=== PATIENT | male | born 1955 | race African-American/Black ===

== ENCOUNTER → 2017-07-17 | Outpatient (CLI) | payer BC ==
[2015-01-13 13:24] VITALS: BP 130/79
[~2017-07-17] MED LIST: AMLO10TA2 PO; ATOR10TA PO; HYDR-2758 PO; LIDO700A4 TP; LOSA1TAB22 PO; LOVA40TA2 PO; NAPR220C4 PO; OLME40TA12 PO; SAXA1TBM3 PO; SITA100T PO; SITA1TBM7 PO; TADA20TA PO; VARD20TA2 PO
--- NOTE | 2017-07-17 10:15 | RAD ---
Examination: CT abdomen and pelvis without contrast History: History of abdominal pain, history of left lower quadrant abdominal hematoma Comparison: 08/29/2011 Technique: Axial CT images of the abdomen pelvis were performed with contrast. Coronal and sagittal reformats were performed PQRS Compliance Statement: One or more of the following individualized dose reduction techniques were utilized for this examination: 1. Automated exposure control 2. Adjustment of the mA and/or kV according to patient size 3. Use of iterative reconstruction technique Findings: Minimal right lung base atelectasis. No evidence free air identified in the abdomen. Partially visualized coronary artery calcifications. The evaluation of the solid organs is limited due to lack of IV contrast. The evaluation of the bowel is limited due to lack of oral contrast. The visualized noncontrasted liver, spleen, adrenals grossly appears unremarkable. The stomach is mildly distended. The gallbladder is mildly distended. The visualized pancreas demonstrates tiny calcifications in the head of the pancreas likely chronic. The small bowel is nondilated. Feces and gas noted throughout the colon. Few sigmoid colon diverticulosis. The appendix is normal. Minimal fat stranding identified in the mesenteric root. No evidence of intrarenal collecting system calculi or hydronephrosis. The urinary bladder is mildly distended. Mildly enlarged prostate gland. Mild aortic atherosclerosis. Small sclerotic density identified in the right iliac bone grossly similar to prior exam. Moderate degenerative changes lumbar spine. Small soft tissue density identified in the subcutaneous region of the anterior abdominal wall measuring 2 cm probably secondary to subcutaneous injection. Impression: 1. No acute intra-abdominal findings. 2. Mild fat stranding identified in the mesenteric root grossly similar to prior exam probably chronic. 3. Sigmoid colon diverticulosis.
== END | disposition home or self-care (01) ==
LOC: CT 07:20
PROVIDERS: ATTEND Internal Medicine
DX: S30.1XXA Contusion of abdominal wall, initial encounter (principal); K57.30 Diverticulosis of large intestine without perforation or abscess without bleeding; J98.11 Atelectasis; I25.10 Atherosclerotic heart disease of native coronary artery without angina pectoris; N40.0 Benign prostatic hyperplasia without lower urinary tract symptoms; X58.XXXA Exposure to other specified factors, initial encounter; Y93.89 Activity, other specified; Y92.89 Other specified places as the place of occurrence of the external cause; Y99.8 Other external cause status
CPT/HCPCS: 74176

== ENCOUNTER 2018-10-10 05:03 | Emergency (ER) | payer BC ==
[~2018-10-10] VITALS: Ht 180.3 cm; Wt 139.3 kg
[~2018-10-10 05:03] MED LIST changes: -AMLO10TA2 PO; +AMLO10TA6 PO; -HYDR-2758 PO; +HYDR-2761 PO
[2018-10-10 05:39] LABS: BASO % 1 % (0-3); EOS # 0.3 x10^3/uL (0.0-0.7); EOS % 5 % (0-3); HEMATOCRIT 39.7 % (39.0-53.0); HEMOGLOBIN 13.4 g/dL (13.0-17.5); LYMPH # 1.9 x10^3/uL (1.0-4.8); LYMPH % 37 % (24-48); MEAN CORPUSCULAR HEMOGLOBIN 29 pg (25-35); MEAN CORPUSCULAR HGB CONC 34 g/dL (31-37); MEAN CORPUSCULAR VOLUME 86 fL (79-100); MONO # 0.5 x10^3/uL (0.0-1.1); MONO % 9 % (0-9); NEUT # 2.6 x10^3uL (1.8-7.7); NEUT % 49 % (31-73); PLATELET COUNT 179 x10^3/uL (140-400); RED BLOOD COUNT 4.63 x10^6/uL (4.30-5.70); RED CELL DISTRIBUTION WIDTH 13.9 % (11.5-14.5); WHITE BLOOD COUNT 5.2 x10^3/uL (4.0-11.0)
[2018-10-10 05:58] LABS: CALCIUM 9.2 mg/dL (8.5-10.1); CREATININE 1.3 mg/dL (0.7-1.3); POTASSIUM 4.4 mmol/L (3.5-5.1)
[2018-10-10 05:58] LABS: BILIRUBIN,URINE NEGATIVE (NEG); CLARITY,URINE CLEAR; COLOR,URINE YELLOW; NITRITE,URINE NEGATIVE (NEG); PROTEIN,URINE 30 mg/dL (NEG-TRACE); UROBILINOGEN,URINE 0.2 mg/dL (0.2 mg/dL)
[2018-10-10 06:05] LABS: ALBUMIN 3.5 g/dL (3.4-5.0); ALBUMIN/GLOBULIN RATIO 1.1 (1.0-1.7); TOTAL BILIRUBIN 0.8 mg/dL (0.2-1.0); TOTAL PROTEIN 6.8 g/dL (6.4-8.2)
--- NOTE | 2018-10-10 06:08 | RAD ---
INDICATION: dizziness COMPARISON: None. TECHNIQUE: Axial CT images obtained through the head without intravenous contrast. One or more of the following individualized dose reduction techniques were utilized for this examination: 1. Automated exposure control; 2. Adjustment of the mA and/or kV according to patient size; 3. Use of iterative reconstruction technique. FINDINGS: No intracranial hemorrhage. No midline shift. Basal cisterns patents. Ventricles and sulci are globally prominent. No acute osseous abnormality. Orbits and paranasal sinuses unremarkable. Scattered foci of low attenuation within the white matter. IMPRESSION: 1. No acute intracranial hemorrhage. 2. Scattered regions of low attenuation within the white matter. Non-specific in nature but frequently secondary to chronic small vessel ischemic disease. 3. Prominence of ventricles and sulci which is frequently secondary to age related volume loss. Electronically signed by: Lyle Felix MD (10/10/2018 6:04 AM) [facility]
[2018-10-10 06:09] LABS: BACTERIA,URINE FEW /HPF (0-FEW); SQUAMOUS EPITHELIAL CELL,UR OCC /LPF; WBC,URINE OCC /HPF (0-4)
--- NOTE | 2018-10-10 06:36 | PHYS DOC ---
Past Medical History Past Medical History: Arthritis, Diabetes-Type II, High Cholesterol, Hypertension, Other Additional Past Medical Histor: CHRONIC BACK PAIN Past Surgical History: Other Additional Past Surgical Histo: throat surgery and shoulder surgery Alcohol Use: Rarely Drug Use: None Adult General Chief Complaint Chief Complaint: DIZZY/LIGHT HEADED HPI HPI Patient is a 63 year old Afro-[place] male history of chronic back pain currently on Aleve and muscle relaxers who presents with dizziness described as lightheadedness generalized weakness and sweats starting several hours prior to ED arrival. Denies headache, chest pain, palpitations, shortness of air. No abdominal pain, flank pain, no urinary frequency urgency. No focal extremity weakness or loss of sensation. No other acute symptoms or complaints.[ ] Review of Systems Review of Systems View symptoms as per history of present illness. All other systems were reviewed and found to be within normal limits, except as documented in this note. Allergies Allergies Allergies Coded Allergies Type Severity Reaction Last Updated Verified No Known Drug Allergies 11/21/13 No Physical Exam Physical Exam Constitutional: Well developed, well nourished, mildly weak and fatigued appearing. [] HENT: Normocephalic, atraumatic, bilateral external ears normal, oropharynx moist, no oral exudates. [] Eyes: PERRLA, EOMI, conjunctiva normal, no discharge. [] Neck: Normal range of motion, no tenderneS. [] Cardiovascular:Heart rate regular rhythm, no murmur [] Lungs & Thorax: Bilateral breath sounds clear to auscultation. [] Abdomen: Bowel sounds normal, soft, no tenderness. [] Skin: Warm, dry, no erythema, no rash. [] Back: No tenderness, no CVA tenderness. [] Extremities: No tenderness, no cyanosis, no clubbing, ROM intact, no edema. [] Neurologic: Alert and oriented X 3, normal motor function, normal sensory function, no focal deficits noted. [] Psychologic: Affect normal, judgement normal, mood normal. [] Current Patient Data Vital Signs Vital Signs Date Time Temp Pulse Resp B/P (MAP) Pulse Ox O2 Delivery O2 Flow Rate FiO2 10/10/18 05:04 97.5 80 20 158/88 (111) 97 Room Air 97.5 Lab Values Laboratory Tests Test 10/10/18 05:10 10/10/18 05:45 White Blood Count 5.2 x10^3/uL (4.0-11.0) Red Blood Count 4.63 x10^6/uL (4.30-5.70) Hemoglobin 13.4 g/dL (13.0-17.5) Hematocrit 39.7 % (39.0-53.0) Mean Corpuscular Volume 86 fL (79-100) Mean Corpuscular Hemoglobin 29 pg (25-35) Mean Corpuscular Hemoglobin Concent 34 g/dL (31-37) Red Cell Distribution Width 13.9 % (11.5-14.5) Platelet Count 179 x10^3/uL (140-400) Neutrophils (%) (Auto) 49 % (31-73) Lymphocytes (%) (Auto) 37 % (24-48) Monocytes (%) (Auto) 9 % (0-9) Eosinophils (%) (Auto) 5 % (0-3) H Basophils (%) (Auto) 1 % (0-3) Neutrophils # (Auto) 2.6 x10^3uL (1.8-7.7) Lymphocytes # (Auto) 1.9 x10^3/uL (1.0-4.8) Monocytes # (Auto) 0.5 x10^3/uL (0.0-1.1) Eosinophils # (Auto) 0.3 x10^3/uL (0.0-0.7) Basophils # (Auto) 0.0 x10^3/uL (0.0-0.2) Sodium Level 137 mmol/L (136-145) Potassium Level 4.4 mmol/L (3.5-5.1) Chloride Level 103 mmol/L (98-107) Carbon Dioxide Level 28 mmol/L (21-32) Anion Gap 6 (6-14) Blood Urea Nitrogen 20 mg/dL (8-26) Creatinine 1.3 mg/dL (0.7-1.3) Estimated GFR (Cockcroft-Gault) 67.0 BUN/Creatinine Ratio 15 (6-20) Glucose Level 156 mg/dL (70-99) H Calcium Level 9.2 mg/dL (8.5-10.1) Total Bilirubin 0.8 mg/dL (0.2-1.0) Aspartate Amino Transferase (AST) 15 U/L (15-37) Alanine Aminotransferase (ALT) 26 U/L (16-63) Alkaline Phosphatase 92 U/L (46-116) Creatine Kinase 148 U/L (39-308) Troponin I Quantitative < 0.017 ng/mL (0.000-0.055) Total Protein 6.8 g/dL (6.4-8.2) Albumin 3.5 g/dL (3.4-5.0) Albumin/Globulin Ratio 1.1 (1.0-1.7) Thyroid Stimulating Hormone (TSH) 1.882 uIU/mL (0.358-3.74) Urine Collection Type Unknown Urine Color Yellow Urine Clarity Clear Urine pH 7.0 Urine Specific [place] 1.020 Urine Protein 30 mg/dL (NEG-TRACE) Urine Glucose (UA) 100 mg/dL (NEG) Urine Ketones (Stick) Negative mg/dL (NEG) Urine Blood Negative (NEG) Urine Nitrite Negative (NEG) Urine Bilirubin Negative (NEG) Urine Urobilinogen Dipstick 0.2 mg/dL (0.2 mg/dL) Urine Leukocyte Esterase Negative (NEG) Urine RBC 1-2 /HPF (0-2) Urine WBC Occ /HPF (0-4) Urine Squamous Epithelial Cells Occ /LPF Urine Bacteria Few /HPF (0-FEW) Laboratory Tests 10/10/18 05:10 Laboratory Tests 10/10/18 05:10 EKG EKG [EKG: Reviewed] Radiology/Procedures Radiology/Procedures [CT head: No acute disease per radiology report] Course & Med Decision Making Course & Med Decision Making Pertinent Labs and Imaging studies reviewed. (See chart for details) [Nondescript dizziness with generalized weakness. CT, negative. No focal neurologic deficits on exam. In progress. Care endorsed to oncoming ERP at 6:30] Dragon Disclaimer Dragon Disclaimer This electronic medical record was generated, in whole or in part, using a voice recognition dictation system. Departure Departure Referrals: RAYMON HEALY MD (PCP) GLENN CERRATO DO Oct 10, 2018 06:36
--- NOTE | 2018-10-10 06:37 | EKG ---
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
[2018-10-10] MEDS ORDERED: IV NORMAL SALINE 1000ML BAG 1,000 ML IV ONE (07:00)
[2018-10-10 07:03] LABS: INFLUENZA A PATIENT NEGATIVE (NEGATIVE); INFLUENZA B PATIENT NEGATIVE (NEGATIVE)
--- NOTE | 2018-10-10 07:38 | RAD ---
Portable chest, 10/10/2018: HISTORY: Chest pain The patient positioning is lordotic. The depth of inspiration is suboptimal. The heart size is normal. There are prominent epicardial fat pads. No acute infiltrate is seen. There is no evidence of pleural fluid. IMPRESSION: No acute cardiopulmonary abnormality is detected. Electronically signed by: Rico Manley MD (10/10/2018 7:34 AM) [facility]
[2018-10-10 08:48] VITALS: BP 120/68
== END 2018-10-10 09:11 | disposition home or self-care (01) ==
LOC: ER 05:03 → UNDOADMOB 07:00 → 6 SOUTH 07:00
DX: R42 Dizziness and giddiness (principal); R53.1 Weakness; G89.29 Other chronic pain
CPT/HCPCS: 36415; 70450; 71045; 80053; 81001; 82550; 84443; 84484; 85025; 87804; 93005; 96360; 99284; J7030

== ENCOUNTER → 2020-04-27 | Outpatient (CLI) | payer BC ==
[~2020-04-27] MED LIST changes: -AMLO10TA6 PO; +AMLO10TA8 PO; +CARV3.1210 PO; +IOHEXOL 180 MG/ML 10 ML VIAL. ONE; +SITA1TAB11 PO; +Vitamin D3; +methylPREDNISolone ACETATE 40 MG/ML VIAL. ONE; +methylPREDNISolone ACETATE 80 MG/ML VIAL. ONE
--- NOTE | 2020-04-27 09:05 | PDOC2 ---
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 Patient reports the pain is constant sharp stabbing throbbing shooting radiating tingling worse during the day worse with walking standing changing positions better with sitting or laying down but riding in the bus and driving is causing the pain to be significantly increased as well. Patient reports it wakes him from sleep multiple times a night does not affect his bowel bladder control significantly but he has some increased frequency but no loss of continence patient what it does affect his body walk significantly does not use any assistive devices. Patient had physical therapy which was helpful at the time but is doing some stretching strength exercises with it now that is still not helping significantly patient is trying Aleve as well as lidocaine patches which do help mildly as well. Patient rates his pain as a 9 on a scale of 10 with occupational activities 10 with recreation 8 with family home was possibilities and social activity 10 with sexual behavior 8 with self-care and 9 with life support activities. Patient ports no overt loss of motor function but significant fatigability with walking especially sitting and riding in the bus for long period of time and with standing and changing position especially from seated to standing and standing to seated. PAST MEDICAL HISTORY: PMH: Hypertension arthritis diabetes type 2 PREVIOUS SURGERIES: Past Surgical Hx: Left shoulder surgery 1989 uvulectomy 1988 CURRENT MEDICATIONS: Current Meds: Active Scripts Medications Dose Route/Sig Max Daily Dose Days Date Category [Vitamin D3] 25 Mcg DAILY 04/27/20 Reported Janumet 50-1,000 Mg Tablet (Sitagliptin Phos/Metformin Hcl) 1 Each Tablet 1 Tab PO BID 04/27/20 Reported Carvedilol (Carvedilol) 3.125 Mg Tablet 3.125 Mg PO BID 04/27/20 Reported Losartan-Hctz 100-25 Mg Tab (Losartan/Hydrochlorothiazide) 1 Each Tablet 1 Tab PO DAILY 02/07/15 Reported Amlodipine Besylate 10 Mg Tablet 10 Mg PO HS 01/08/14 Reported Lipitor (Atorvastatin Calcium) 10 Mg Tablet 10 Mg PO HS 01/08/14 Reported ALLERGIES; Allergies: Coded Allergies: No Known Drug Allergies (Unverified , 11/21/13) FAMILY HISTORY: Family Hx: No major medical problems conditions that patient is aware of SOCIAL HISTORY: Social Hx: Patient does not smoke does not drink alcohol does not use any illegal illicit or recreational drugs is lives with his spouse has no children living at home 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 REVIEW OF SYSTEMS: ROS: Review of systems positive sander wooden pencils is present illness all systems reviewed otherwise negative complete formal document on patient's chart PHYSICAL EXAM: VS: Blood pressures 142/90 pulse 76 respirations 18 temperature 97.7 F height is 5 foot 11 weight is3 07 pounds PE: PHYSICAL EXAMINATION: GENERAL: The patient is awake, alert, oriented, appropriate, very pleasant demeanor HEENT: Shows normocephalic, atraumatic. Extraocular movements are intact and symmetrical. Oral cavity: Mucous membranes moist and pink. Dentition is intact. NECK: Shows anterior throat supple without palpable lymphadenopathy noted. Swallow reflex symmetrical. CHEST: Shows normal on inspection. Breath sounds are clear bilaterally. HEART: Shows S1, S2 clear. No murmurs auscultated. ABDOMEN: Soft, nontender, nondistended. No palpable organomegaly is noted. No rebound or guarding demonstrated. BACK: Shows spine grossly in the midline. Normal-appearing cervical lordotic curvature. There is slightly increased thoracic kyphosis, some minor flattening of the lumbar lordotic curvature. Lumbar paraspinous muscles show symmetrical on inspection, on palpation shows some moderate tenderness diffusely throughout the upper, middle and lower distribution of the paraspinous muscles bilaterally and also into the lower thoracic paraspinous musculature, firm and tender, but without specific trigger points, without radiation of pain. The patient has good rotational motion of the lumbar spine, both laterally as well as extension and flexion without significant difficulty. No tenderness over the spinous processes, sacrum or sacroiliac regions. EXTREMITIES: Lower extremities show deep tendon reflexes 1+ in the patellar and tendo calcaneus tendons. Motor exam is 4 on a scale of 5 with right dorsiflexion, extension, quadriceps and hamstring flexion and 4/5 on the left. Peripheral pulses are 1+ posterior tibial. No peripheral edema is noted bilaterally. Lower extremities are warm and dry to touch, equal in color and appearance. Straight leg raise noted to be negative on the right, left side is negative. Gaenslen's and Hollis's maneuvers are negative as well. The patient is able to stand stand on his toes walks with a slight favoring gait does appear to favor the right lower extremity slightly more than left but without any assistive devices such as canes or walker to ambulate.. SKIN: Shows warm and dry, good turgor. No edema. No sores, rashes or bruising throughout. IMPRESSION: Impression: Impression and plan: This is a 64-year-old male with approximate 2-year history increasing pain low back bilateral lower extremities and radicular fashion. Hypertension Arthritis Type 2 diabetes Plan: Options were discussed with the patient including conservative medical management physical therapies interventional techniques he like to pursue interventional techniques we discussed a lumbar epidural steroid traction using prescription as well as anatomical model to describe the procedure risk with an discussed including but not limited to bleeding infection possibility of epidural hematoma subsequent neurological compromise dural puncture headache spinal cord and/or nerve damage side effects of steroid medication and poor results regarding pain control. Patient understands wished to proceed. Patient return to clinic in approximately 2 weeks for follow-up was counseled return appointment activity level and side effects to be aware of. Procedure is lumbar epidural steroid injection under local anesthetic using sterile prep and drape at the L4-5 level using C-arm fluoroscopic guidance in both AP and lateral views medications injected is 120 mg Depo-Medrol + 10 mL preservative-free normal saline and 2 mL Isovue for contrast- condition at discharge is stable patient tolerated procedure well had no complications. SANJUANA WATT MD Apr 27, 2020 09:05
== END | disposition home or self-care (01) ==
LOC: PNCL 07:31
PROVIDERS: ATTEND Anesthesiology
DX: M54.5 Low back pain (principal); I10 Essential (primary) hypertension; M19.90 Unspecified osteoarthritis, unspecified site; E11.9 Type 2 diabetes mellitus without complications; Z79.899 Other long term (current) drug therapy
CPT/HCPCS: 62323; J1030; J1040; Q9965

== ENCOUNTER → 2020-05-11 | Outpatient (CLI) | payer BC ==
--- NOTE | 2020-05-11 08:48 | PDOC ---
Progress Note - Pain Clinic Date of Service: DOS: DATE: 05/11/20 TIME: 08:44 Diagnosis: Dx: Lumbar radiculopathy with lumbar degenerative disc disease lumbar spinal stenosis and lumbar spondylosis History or Present Illness: HPI: 64-year-old male returns follow-up status post lumbar epidural steroid injections x1. Patient reports about 75% improvement initially but developed only 15% improvement in mobility. Patient did have some significant pain in the low back and bilateral lower extremities posterior gluteus posterior thighs lateral thighs anterior thighs medial thighs medial lower legs and posterior calves. Patient reports a 9 on a scale of 10 is worse in the past week 7 on average 5 at its least is a 7 today. 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 Reports he has been able to walk further distances and move his legs better but he still has significant pain. Patient works better with sitting with laying down does not awaken him from sleep at night. Patient reports no new motor or sensory deficits no new bowel or bladder incontinence or other complaints. Physical Exam: VS: 174/80 pulse 75 respirations are 16 temperature is 98.2 F which is 302 pounds PE: PHYSICAL EXAMINATION: GENERAL: The patient is awake, alert, oriented, appropriate, very pleasant demeanor HEENT: Shows normocephalic, atraumatic. Extraocular movements are intact and symmetrical. Oral cavity: Mucous membranes moist and pink. Dentition is intact. NECK: Shows anterior throat supple without palpable lymphadenopathy noted. Swallow reflex symmetrical. CHEST: Shows normal on inspection. Breath sounds are clear bilaterally. HEART: Shows S1, S2 clear. No murmurs auscultated. ABDOMEN: Soft, nontender, nondistended, obese. No palpable organomegaly is noted. No rebound or guarding demonstrated. BACK: Shows spine grossly in the midline. Normal-appearing cervical lordotic curvature. There is slightly increased thoracic kyphosis, some minor flattening of the lumbar lordotic curvature. Lumbar paraspinous muscles show symmetrical on inspection, on palpation shows some moderate tenderness diffusely throughout the upper, middle and lower distribution of the paraspinous muscles bilaterally without specific trigger points, without radiation of pain. The patient has good rotational motion of the lumbar spine, both laterally as well as extension and flexion without significant difficulty. No tenderness over the spinous processes, sacrum or sacroiliac regions. EXTREMITIES: Lower extremities show deep tendon reflexes 1+ in the patellar and tendo calcaneus tendons. Motor exam is 4 on a scale of 5 with right dorsiflexion, extension, quadriceps and hamstring flexion and 4/5 on the left. Peripheral pulses are 1+ posterior tibial. No peripheral edema is noted bilaterally. Lower extremities are warm and dry to touch, equal in color and appearance. SKIN: Shows warm and dry, good turgor. No edema. No sores, rashes or bruising throughout. Procedure: Procedure: Discussed with the patient. Patient's old chart was reviewed his current medication regimen updated current review of systems updated today as well. Proceed with a second in the series lumbar epidurals or injections today with fluoroscopic guidance. Risks are again discussed including but not limited to bleeding infection possibility of epidural hematoma subsequent neurological compromise dural puncture headache spinal cord and or nerve damage side effects of steroid medication and poor results regarding pain control. Patient under stands wished to proceed. Patient will return to clinic in approximately 2 weeks for follow-up, was counseled as to return appointment activity level and side effects to be aware of. Medication Injected: Med Injected: Procedure is lumbar epidural steroid injection under local anesthetic using sterile prep and drape at the L4-5 level using C-arm fluoroscopic guidance in both AP and lateral views medications injected is 120 mg Depo-Medrol + 10 mL preservative-free normal saline and 2 mLfor contrast- condition at discharge is stable patient tolerated procedure well had no complications. Condition at Discharge: Condition at Discharge: Condition at discharge is stable patient tolerated the procedure well had no complications. SANJUANA WATT MD May 11, 2020 08:48
== END | disposition home or self-care (01) ==
LOC: PNCL 08:06
PROVIDERS: ATTEND Anesthesiology
DX: M51.16 Intervertebral disc disorders with radiculopathy, lumbar region (principal); M48.061 Spinal stenosis, lumbar region without neurogenic claudication; M47.896 Other spondylosis, lumbar region; I10 Essential (primary) hypertension; E11.9 Type 2 diabetes mellitus without complications; Z79.899 Other long term (current) drug therapy
CPT/HCPCS: 62323; J1030; J1040; Q9965

== ENCOUNTER → 2020-05-25 | Outpatient (CLI) | payer BC ==
--- NOTE | 2020-05-25 08:58 | PDOC ---
Progress Note - Pain Clinic Date of Service: DOS: DATE: 05/25/20 TIME: 08:55 Diagnosis: Dx: Lumbar radiculopathy with lumbar spinal stenosis lumbar degenerative disc disease and lumbar spondylosis History or Present Illness: HPI: 64-year-old male returns follow-up status post lumbar epidurals or injection x2. Patient reports about 45% improvement after the last injection but pain still in the low back and bilateral lower extremities posterior gluteus posterior lateral thigh lateral anterior thighs anterior medial thighs and lower legs with some cramping increasing since his last injection. 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 Patient rates his pain a 9 on scale 10 is worse with the past week 7 on average 5 its least is a 7 today. Patient ports pain is aching sharp dull tight shooting tingling burning cramping stabbing radiating can be constant with sitting standing walking and changing positions. Pain is better with sitting or laying down but again awakens him from sleep sporadically. Reports no new motor or sensory deficits no new bowel or bladder incontinence Physical Exam: VS: Blood pressure is 120/80 pulse 76 respirations 18 temperature 97.9 F weight is 302 pounds PE: PHYSICAL EXAMINATION: GENERAL: The patient is awake, alert, oriented, appropriate, very pleasant demeanor HEENT: Shows normocephalic, atraumatic. Extraocular movements are intact and symmetrical. Oral cavity: Mucous membranes moist and pink. NECK: Shows anterior throat supple without palpable lymphadenopathy noted. Swallow reflex symmetrical. CHEST: Shows normal on inspection. Breath sounds are clear bilaterally, no ra les rhonchi or wheezes auscultated. HEART: Shows S1, S2 clear. No murmurs auscultated. ABDOMEN: Soft, nontender, nondistended, obese. No palpable organomegaly is noted. No rebound or guarding demonstrated. BACK: Shows spine grossly in the midline. Normal-appearing cervical lordotic curvature. There is slightly increased thoracic kyphosis, some minor flattening of the lumbar lordotic curvature. Lumbar paraspinous muscles show symmetrical on inspection, on palpation shows some moderate tenderness diffusely throughout the upper, middle and lower distribution of the paraspinous muscles bilaterally without specific trigger points, without radiation of pain. The patient has good rotational motion of the lumbar spine, both laterally as well as extension and flexion without significant difficulty. No tenderness over the spinous processes, sacrum or sacroiliac regions. EXTREMITIES: Lower extremities show deep tendon reflexes 1+ in the patellar and tendo calcaneus tendons. Motor exam is 4 on a scale of 5 with right dorsiflexion, extension, quadriceps and hamstring flexion and 4/5 on the left. Peripheral pulses are 1 posterior tibial. No peripheral edema is noted bilaterally. Lower extremities are warm and dry to touch, equal in color and appearance. SKIN: Shows warm and dry, good turgor. No edema. No sores, rashes or bruising throughout. Procedure: Procedure: Options were discussed with the patient. Patient will chart reviews his current medication regimen updated current review of systems updated today as well. We will proceed with a third lumbar epidural steroid injection today with fluoroscopic guidance. Risks were again discussed including but not limited to bleeding infection possibility of epidural hematoma subsequent neurological compromise dural puncture headache spinal cord and or nerve damage side effects of steroid medication portals chronic pain control patient understands wished to proceed patient return to clinic in approximate 2 weeks for follow-up was coun seled as return appointment activity level and side effects be aware Medication Injected: Med Injected: Procedure is lumbar epidural steroid injection under local anesthetic using sterile prep and drape at the L4-5 level using C-arm fluoroscopic guidance in both AP and lateral views medications injected is 120 mg Depo-Medrol + 10 mL preservative-free normal saline and 2 mL contrast- condition at discharge is stable patient tolerated procedure well had no complications. Condition at Discharge: Condition at Discharge: Condition at discharge is stable, patient tolerated procedure well had no complications. SANJUANA WATT MD May 25, 2020 08:58
== END | disposition home or self-care (01) ==
LOC: PNCL 08:11
PROVIDERS: ATTEND Anesthesiology
DX: M51.16 Intervertebral disc disorders with radiculopathy, lumbar region (principal); M48.061 Spinal stenosis, lumbar region without neurogenic claudication; M47.896 Other spondylosis, lumbar region; I10 Essential (primary) hypertension; E11.9 Type 2 diabetes mellitus without complications; Z79.899 Other long term (current) drug therapy
CPT/HCPCS: 62323; J1030; J1040; Q9965

== ENCOUNTER 2020-05-28 15:13 | Emergency (ER) | payer BC ==
[~2020-05-28] VITALS: Ht 177.8 cm; Wt 137.2 kg
[~2020-05-28 15:13] MED LIST changes: -IOHEXOL 180 MG/ML 10 ML VIAL. ONE; -methylPREDNISolone ACETATE 40 MG/ML VIAL. ONE; -methylPREDNISolone ACETATE 80 MG/ML VIAL. ONE
[2020-05-28] MEDS ORDERED: IV NORMAL SALINE 1000ML BAG 1,000 ML IV ONE (15:45)
[2020-05-28 15:53] LABS: BASO % 0 % (0-3); EOS % 1 % (0-3); LYMPH # 1.5 x10^3/uL (1.0-4.8); LYMPH % 19 % (24-48); MEAN CORPUSCULAR HEMOGLOBIN 30 pg (25-35); MEAN CORPUSCULAR HGB CONC 34 g/dL (31-37); MEAN CORPUSCULAR VOLUME 87 fL (79-100); MONO # 0.6 x10^3/uL (0.0-1.1); MONO % 8 % (0-9); NEUT # 5.6 x10^3/uL (1.8-7.7); NEUT % 71 % (31-73); PLATELET COUNT 193 x10^3/uL (140-400); RED BLOOD COUNT 4.72 x10^6/uL (4.30-5.70); WHITE BLOOD COUNT 7.8 x10^3/uL (4.0-11.0)
[2020-05-28 16:03] LABS: GFR 40.7; POTASSIUM 4.2 mmol/L (3.5-5.1)
[2020-05-28 16:09] LABS: ALBUMIN 3.6 g/dL (3.4-5.0); MAGNESIUM 1.9 mg/dL (1.8-2.4); TOTAL PROTEIN 7.3 g/dL (6.4-8.2)
--- NOTE | 2020-05-28 16:18 | RAD ---
PORTABLE CHEST 1V Clinical History: Reason: altered mental status, weakness / Spl. Instructions: / History: Technique: AP view of the chest was obtained at 05/28/2020 3:40 PM. Comparison: None. Findings: The cardiomediastinal silhouette is normal. The pulmonary vasculature is normal. Linear opacities lung bases are likely discoid atelectasis. Impression: No evidence of an acute cardiopulmonary process. Electronically signed by: Alessandro Miller III, MD (05/28/2020 4:15 PM) [facility]
--- NOTE | 2020-05-28 16:19 | RAD ---
CT Head W/O Contrast: History: Reason: altered mental status, weakness / Spl. Instructions: / History: Comparison: none Axial images were obtained without contrast. The martinez and white matter appears normal and symmetrical for the patients age. There is no mass effect, extraaxial fluid collections or hydrocephalus. There is no gross bleed. There is no focal loss of martinez-white matter distinction to suggest acute ischemia, i.e. stroke. Impression: No acute findings. [facility] Compliance Statement: One or more of the following individualized dose reduction techniques were utilized for this examination: 1. Automated exposure control 2. Adjustment of the mA and/or kV according to patient size 3. Use of iterative reconstruction technique Electronically signed by: Alessandro Miller III, MD (05/28/2020 4:17 PM) [facility]
[2020-05-28 16:33] LABS: BILIRUBIN,URINE SMALL (NEG); CLARITY,URINE CLEAR; COLOR,URINE AMBER; NITRITE,URINE NEGATIVE (NEG); PROTEIN,URINE 100 mg/dL (NEG-TRACE)
[2020-05-28 16:43] LABS: BACTERIA,URINE 0 /HPF (0-FEW); RBC,URINE 0 /HPF (0-2); WBC,URINE RARE /HPF (0-4)
[2020-05-28 16:44] LABS: HYALINE CASTS, URINE MANY /HPF
--- NOTE | 2020-05-28 17:56 | PHYS DOC ---
Past Medical History Past Medical History: Arthritis, Diabetes-Type II, High Cholesterol, Hypertension, Other Additional Past Medical Histor: CHRONIC BACK PAIN Past Surgical History: Other Additional Past Surgical Histo: throat surgery and shoulder surgery Smoking Status: Never Smoker Alcohol Use: Rarely Drug Use: None General Adult EDM: Chief Complaint: NEURO SYMPTOMS/DEFICITS HPI: HPI: Patient is a 64 year old [f__sex] who presents with [] Review of Systems: Review of Systems: Constitutional: Denies fever or chills. [] Eyes: Denies change in visual acuity. [] HENT: Denies nasal congestion or sore throat. [] Respiratory: Denies cough or shortness of breath. [] Cardiovascular: Denies chest pain or edema. [] GI: Denies abdominal pain, nausea, vomiting, bloody stools or diarrhea. [] : Denies dysuria. [] Musculoskeletal: Denies back pain or joint pain. [] Integument: Denies rash. [] Neurologic: Denies headache, focal weakness or sensory changes. [] Endocrine: Denies polyuria or polydipsia. [] Lymphatic: Denies swollen glands. [] Psychiatric: Denies depression or anxiety. [] Heart Score: Risk Factors: Risk Factors: DM, Current or recent (<one month) smoker, HTN, HLP, family history of CAD, obesity. Risk Scores: Score 0 - 3: 2.5% MACE over next 6 weeks - Discharge Home Score 4 - 6: 20.3% MACE over next 6 weeks - Admit for Clinical Observation Score 7 - 10: 72.7% MACE over next 6 weeks - Early Invasive Strategies Current Medications: Current Medications Medications (Trade) Dose Ordered Sig/Ward Start Time Stop Time Status Last Admin Dose Admin Sodium Chloride 1,000 ml @ 1,000 mls/hr 1X ONCE 05/28/20 15:45 05/28/20 16:44 DC 05/28/20 16:20 1,000 MLS/HR Allergies: Allergies: Allergies Coded Allergies Type Severity Reaction Last Updated Verified No Known Drug Allergies 11/21/13 No Physical Exam: PE: Constitutional: Well developed, well nourished, no acute distress, non-toxic appearance. [] HENT: Normocephalic, atraumatic, bilateral external ears normal, oropharynx moist, no oral exudates, nose normal. [] Eyes: PERRLA, EOMI, conjunctiva normal, no discharge. [] Neck: Normal range of motion, no tenderness, supple, no stridor. [] Cardiovascular:Heart rate regular rhythm, no murmur [] Lungs & Thorax: Bilateral breath sounds clear to auscultation [] Abdomen: Bowel sounds normal, soft, no tenderness, no masses, no pulsatile m asses. [] Skin: Warm, dry, no erythema, no rash. [] Back: No tenderness, no CVA tenderness. [] Extremities: No tenderness, no cyanosis, no clubbing, ROM intact, no edema. [] Neurologic: Alert and oriented X 3, normal motor function, normal sensory function, no focal deficits noted. [] Psychologic: Affect normal, judgement normal, mood normal. [] Current Patient Data: Labs: Laboratory Tests Test 05/28/20 15:23 05/28/20 15:30 05/28/20 16:25 Glucose (Fingerstick) 168 mg/dL (70-99) H White Blood Count 7.8 x10^3/uL (4.0-11.0) Red Blood Count 4.72 x10^6/uL (4.30-5.70) Hemoglobin 14.0 g/dL (13.0-17.5) Hematocrit 41.0 % (39.0-53.0) Mean Corpuscular Volume 87 fL (79-100) Mean Corpuscular Hemoglobin 30 pg (25-35) Mean Corpuscular Hemoglobin Concent 34 g/dL (31-37) Red Cell Distribution Width 14.0 % (11.5-14.5) Platelet Count 193 x10^3/uL (140-400) Neutrophils (%) (Auto) 71 % (31-73) Lymphocytes (%) (Auto) 19 % (24-48) L Monocytes (%) (Auto) 8 % (0-9) Eosinophils (%) (Auto) 1 % (0-3) Basophils (%) (Auto) 0 % (0-3) Neutrophils # (Auto) 5.6 x10^3/uL (1.8-7.7) Lymphocytes # (Auto) 1.5 x10^3/uL (1.0-4.8) Monocytes # (Auto) 0.6 x10^3/uL (0.0-1.1) Eosinophils # (Auto) 0.0 x10^3/uL (0.0-0.7) Basophils # (Auto) 0.0 x10^3/uL (0.0-0.2) Sodium Level 137 mmol/L (136-145) Potassium Level 4.2 mmol/L (3.5-5.1) Chloride Level 102 mmol/L (98-107) Carbon Dioxide Level 28 mmol/L (21-32) Anion Gap 7 (6-14) Blood Urea Nitrogen 28 mg/dL (8-26) H Creatinine 2.0 mg/dL (0.7-1.3) H Estimated GFR (Cockcroft-Gault) 40.7 BUN/Creatinine Ratio 14 (6-20) Glucose Level 173 mg/dL (70-99) H Lactic Acid Level 1.5 mmol/L (0.4-2.0) Calcium Level 9.0 mg/dL (8.5-10.1) Magnesium Level 1.9 mg/dL (1.8-2.4) Total Bilirubin 1.0 mg/dL (0.2-1.0) Aspartate Amino Transferase (AST) 10 U/L (15-37) L Alanine Aminotransferase (ALT) 18 U/L (16-63) Alkaline Phosphatase 91 U/L (46-116) Creatine Kinase 97 U/L (39-308) Creatine Kinase MB (Mass) 0.9 ng/mL (0.0-3.6) Creatine Kinase MB Relative Index 0.9 % (0-4) Troponin I Quantitative < 0.017 ng/mL (0.000-0.055) Total Protein 7.3 g/dL (6.4-8.2) Albumin 3.6 g/dL (3.4-5.0) Albumin/Globulin Ratio 1.0 (1.0-1.7) Urine Collection Type Unknown Urine Color [place]ita Urine Clarity Clear Urine pH 5.0 (<5.0-8.0) Urine Specific [place] 1.025 (1.000-1.030) Urine Protein 100 mg/dL (NEG-TRACE) Urine Glucose (UA) Negative mg/dL (NEG) Urine Ketones (Stick) Trace mg/dL (NEG) Urine Blood Negative (NEG) Urine Nitrite Negative (NEG) Urine Bilirubin Small (NEG) Urine Urobilinogen Dipstick 1.0 mg/dL (0.2 mg/dL) Urine Leukocyte Esterase Negative (NEG) Urine RBC 0 /HPF (0-2) Urine WBC Rare /HPF (0-4) Urine Squamous Epithelial Cells None /LPF Urine Bacteria 0 /HPF (0-FEW) Urine Hyaline Casts Many /HPF Urine Mucus Mod /LPF Ammonia < 10 mcmol/L (11-34) L Laboratory Tests 05/28/20 15:30 Laboratory Tests 05/28/20 15:30 Vital Signs: Vital Signs Date Time Temp Pulse Resp B/P (MAP) Pulse Ox O2 Delivery O2 Flow Rate FiO2 05/28/20 15:30 97.5 91 21 164/86 (112) 99 Room Air 97.5 EKG: EK05-28-2020 at 15:31 AR: 164 ms QRS: 86 ms QT: 326 ms QTc: 398 ms Impression: Normal sinus rhythm. Radiology/Procedures: Radiology/Procedures: PROCEDURE: CT HEAD WO CONTRAST CT Head W/O Contrast: History: Reason: altered mental status, weakness / Spl. Instructions: / History: Comparison: none Axial images were obtained without contrast. The martinez and white matter appears normal and symmetrical for the patients age. There is no mass effect, extraaxial fluid collections or hydrocephalus. There is no gross bleed. There is no focal loss of martinez-white matter distinction to suggest acute ischemia, i.e. stroke. Impression: No acute findings. [facility] Compliance Statement: One or more of the following individualized dose reduction techniques were utilized for this examination: 1. Automated exposure control 2. Adjustment of the mA and/or kV according to patient size 3. Use of iterative reconstruction technique Electronically signed by: Alessandro Miller III, MD (05/28/2020 4:17 PM) [facility] PROCEDURE: PORTABLE CHEST 1V PORTABLE CHEST 1V Clinical History: Reason: altered mental status, weakness / Spl. Instructions: / History: Technique: AP view of the chest was obtained at 05/28/2020 3:40 PM. Comparison: None. Findings: The cardiomediastinal silhouette is normal. The pulmonary vasculature is normal. Linear opacities lung bases are likely discoid atelectasis. Impression: No evidence of an acute cardiopulmonary process. Electronically signed by: Alessandro Miller III, MD (05/28/2020 4:15 PM) [facility] Course & Med Decision Making: Course & Med Decision Making Pertinent Labs and Imaging studies reviewed. (See chart for details) [] Dragon Disclaimer: Dragon Disclaimer: This electronic medical record was generated, in whole or in part, using a voice recognition dictation system. Departure Departure Impression: Primary Impression: Weakness Additional Impressions: Tremor Near syncope Disposition: HOME, SELF-CARE Condition: STABLE Referrals: RAYMON HEALY MD (PCP) Patient Instructions: Near-Syncope, [id number], Tremor, Weakness, [id number] Justicifation of Admission Dx: Justifications for Admission: Justification of Admission Dx: N/A ASH CASTILLO DO May 28, 2020 17:56
[2020-05-28 18:00] VITALS: BP 128/72
== END 2020-05-28 18:15 | disposition home or self-care (01) ==
LOC: ER 15:13
DX: R53.1 Weakness (principal); R55 Syncope and collapse; R25.1 Tremor, unspecified; M19.90 Unspecified osteoarthritis, unspecified site; E11.9 Type 2 diabetes mellitus without complications; E78.00 Pure hypercholesterolemia, unspecified; I10 Essential (primary) hypertension; G89.29 Other chronic pain; Z98.890 Other specified postprocedural states
CPT/HCPCS: 36415; 70450; 71045; 80053; 81001; 82140; 82553; 82962; 83605; 83735; 84484; 85025; 96360; 99285; J7030

== ENCOUNTER → 2020-05-31 | Outpatient (CLI) | payer BC ==
[2020-05-28 18:00] VITALS: BP 128/72
== END | disposition home or self-care (01) ==
LOC: LAB 06:54
PROVIDERS: ATTEND Internal Medicine Gastroenterology
DX: Z20.828 Contact with and (suspected) exposure to other viral communicable diseases (principal)
CPT/HCPCS: U0003-CS

== ENCOUNTER → 2020-06-03 | Day surgery (SDC) | payer BC ==
[~2020-06-03] MED LIST changes: +IV RINGERS,LACTATED 1000ML 1,000 ML IV ONE; +LIDOCAINE 2% PF 5 ML VIAL. ONE; +PROPOFOL 10 MG/ML (20ML) VIAL. IV ONE
--- NOTE | 2020-06-03 10:07 | CONS ---
DATE OF CONSULTATION: 06/03/2020 GASTROINTESTINAL CONSULTATION REFERRING PHYSICIAN: Raymon Macias MD. REASON FOR CONSULTATION: History of polyps. HISTORY OF PRESENT ILLNESS: A 64-year-old -Marshallese male with past medical history significant for hypertension, hyperlipidemia as well as diabetes, is seen for interval colonoscopy, has had polyps in the past. There has been no change in bowel habits, diarrhea, constipation and no melena and/or hematochezia. Weight and appetite are stable and there is no family history of colon cancer at this time. He is otherwise without additional complaints. PAST MEDICAL HISTORY: Hypertension, hyperlipidemia, and diabetes. ALLERGIES: None. MEDICATIONS: Include amlodipine, Lipitor, carvedilol, losartan, hydrochlorothiazide, Naprosyn, metformin, vitamin D. SOCIAL HISTORY: Lives with spouse. Does not drink or smoke. FAMILY HISTORY: Noncontributory. REVIEW OF SYSTEMS: Per records. PHYSICAL EXAMINATION: GENERAL: Reveals a well-nourished, well-developed -Marshallese male who is alert, cooperative, in no acute distress. VITAL SIGNS: Temperature 97.9, pulse 90, respiratory rate 20. LUNGS: Clear. CARDIOVASCULAR: Reveals an S1, S2 without S3, S4 or appreciable murmur. ABDOMEN: Reveals a soft abdomen, normal bowel sounds, without appreciable hepatosplenomegaly. EXTREMITIES: No cyanosis, clubbing or edema. ASSESSMENT AND PLAN: History of colonic polyps. Surveillance exam is recommended at this time. Risks and benefits of procedure including risk of hemorrhage and perforation during the operation were discussed. The patient is willing to proceed. NUVIA RODRIGUEZ MD DR: LILIANA/juani JOB#: [id number] / [id number] RAYMON Esteban MD
[2020-06-03 10:15] VITALS: BP 134/76
== END | disposition home or self-care (01) ==
LOC: ENDOS 08:24
PROVIDERS: ATTEND Internal Medicine Gastroenterology
DX: Z12.11 Encounter for screening for malignant neoplasm of colon (principal); K64.0 First degree hemorrhoids; K57.30 Diverticulosis of large intestine without perforation or abscess without bleeding; I10 Essential (primary) hypertension; E11.9 Type 2 diabetes mellitus without complications; Z86.010 Personal history of colon polyps; Z79.899 Other long term (current) drug therapy
CPT/HCPCS: 45378; J2704

== ENCOUNTER → 2020-08-03 | Outpatient (CLI) | payer BC ==
[2020-06-03 10:15] VITALS: BP 134/76
[~2020-08-03] MED LIST changes: +AMLO-187 PO; -AMLO10TA8 PO; -IV RINGERS,LACTATED 1000ML 1,000 ML IV ONE; -LIDOCAINE 2% PF 5 ML VIAL. ONE; -PROPOFOL 10 MG/ML (20ML) VIAL. IV ONE
--- NOTE | 2020-08-04 10:30 | RAD ---
DOPPLER CAROTID BILAT History: Reason: TIA / Spl. Instructions: / History: COMPARISON: None Technique: Duplex sonography of the cervical portion of both carotid arteries was performed. Real-time grayscale, color flow Doppler, and Doppler spectral waveform analysis is performed. PQRS Compliance Statement - Stenosis calculations for CT, MR and conventional angiography are based upon measurement of the distal ICA diameter in accordance with the NASCET methodology. Stenosis calculations for carotid ultrasound studies are derived from validated velocity criteria which are known to correlate with the NASCET methodology. Findings: Right side: Peak systolic flow velocity of the CCA is 78 cm/sec. Peak systolic flow velocity of the ICA is 94 cm/sec. The ICA/CCA ratio is 1.2. Peak end diastolic flow velocity of the ICA is 39 cm/sec. The peak systolic velocity of the ECA is 99 cm/sec. Mild atheromatous plaque. Left side: Peak systolic flow velocity of the CCA is 87 cm/sec. Peak systolic flow velocity of the ICA is 90 cm/sec. The ICA/CCA ratio is 1.04. Peak end diastolic flow velocity of the ICA is 46 cm/sec. Peak systolic flow velocity of the ECA is 130 cm/sec. Mild atheromatous plaque. Vertebral arteries: Bilateral vertebral arteries demonstrate antegrade flow. IMPRESSION: 1. No hemodynamically significant internal carotid artery stenosis. 2. Mild bilateral atheromatous plaque. Electronically signed by: Solomon Templeton DO (08/04/2020 10:27 AM) [id number]
== END ==
LOC: US 15:27
PROVIDERS: ATTEND Nurse Practitioner Family
DX: I65.23 Occlusion and stenosis of bilateral carotid arteries (principal)
CPT/HCPCS: 93880

== ENCOUNTER 2020-10-04 10:11 | Observation (INO) | payer BC, MEDICARE ==
[~2020-10-04] VITALS: Ht 170.2 cm; Wt 140.4 kg
--- NOTE | 2020-10-04 10:41 | PHYS DOC ---
Past Medical History Past Medical History: Arthritis, Diabetes-Type II, High Cholesterol, Hype rtension, Other Additional Past Medical Histor: CHRONIC BACK PAIN Past Surgical History: Other Additional Past Surgical Histo: throat surgery and shoulder surgery Smoking Status: Never Smoker Alcohol Use: Rarely Drug Use: None General Adult EDM: Chief Complaint: NEURO SYMPTOMS/DEFICITS HPI: HPI: Patient is a 65 year old male was brought here by his for evaluation of left side facial droop. His noted the symptoms at 5 pm on 10/02/20 when he came home from work, not sure when he was last known normal. He went to work the next day and that when he noted the problem because he kept biting on the left side of his lip. He also has tendency to lean on the right side. Patient denies any headache, no neck pain. No weakness or numbness anywhere. Patient denies any fever. Patient denies any chest pain, no abdominal pain, no nausea vomiting, no trouble breathing, no blurry vision. Review of Systems: Review of Systems: Constitutional: Denies fever or chills. [] Eyes: Denies change in visual acuity. [] HENT: Denies nasal congestion or sore throat. [] Respiratory: Denies cough or shortness of breath. [] Cardiovascular: Denies chest pain or edema. [] GI: Denies abdominal pain, nausea, vomiting, bloody stools or diarrhea. [] : Denies dysuria. [] Musculoskeletal: Denies back pain or joint pain. [] Integument: Denies rash. [] Neurologic: Denies headache, positive for left side facial droop. Endocrine: Denies polyuria or polydipsia. [] Lymphatic: Denies swollen glands. [] Psychiatric: Denies depression or anxiety. [] Heart Score: Risk Factors: Risk Factors: DM, Current or recent (<one month) smoker, HTN, HLP, family history of CAD, obesity. Risk Scores: Score 0 - 3: 2.5% MACE over next 6 weeks - Discharge Home Score 4 - 6: 20.3% MACE over next 6 weeks - Admit for Clinical Observation Score 7 - 10: 72.7% MACE over next 6 weeks - Early Invasive Strategies Allergies: Allergies: Allergies Coded Allergies Type Severity Reaction Last Updated Verified No Known Drug Allergies 06/03/20 No Physical Exam: PE: Constitutional: Well developed, well nourished, no acute distress, non-toxic appearance. [] HENT: Normocephalic, atraumatic, bilateral external ears normal, oropharynx moist, no oral exudates, nose normal. [] Eyes: PERRLA, EOMI, conjunctiva normal, no discharge. [] Neck: Normal range of motion, no tenderness, supple, no stridor. [] Cardiovascular:Heart rate regular rhythm, no murmur [] Lungs & Thorax: Bilateral breath sounds clear to auscultation [] Abdomen: Bowel sounds normal, soft, no tenderness, no masses, no pulsatile masses. [] Skin: Warm, dry, no erythema, no rash. [] Back: No tenderness, no CVA tenderness. [] Extremities: No tenderness, no cyanosis, no clubbing, ROM intact, no edema. [] Neurologic: Alert and oriented X 3, left side facial droop, no forehead involvement. SPEECH SLIGHTLY SLURRED. Psychologic: Affect normal, judgement normal, mood normal. [] Current Patient Data: Labs: Laboratory Tests Test 10/04/20 10:22 10/04/20 10:25 10/04/20 11:35 Glucose (Fingerstick) 135 mg/dL White Blood Count 5.9 x10^3/uL Red Blood Count 4.96 x10^6/uL Hemoglobin 14.3 g/dL Hematocrit 42.6 % Mean Corpuscular Volume 86 fL Mean Corpuscular Hemoglobin 29 pg Mean Corpuscular Hemoglobin Concent 34 g/dL Red Cell Distribution Width 13.4 % Platelet Count 205 x10^3/uL Neutrophils (%) (Auto) 53 % Lymphocytes (%) (Auto) 33 % Monocytes (%) (Auto) 9 % Eosinophils (%) (Auto) 4 % Basophils (%) (Auto) 1 % Neutrophils # (Auto) 3.1 x10^3/uL Lymphocytes # (Auto) 2.0 x10^3/uL Monocytes # (Auto) 0.5 x10^3/uL Eosinophils # (Auto) 0.2 x10^3/uL Basophils # (Auto) 0.1 x10^3/uL Sodium Level 142 mmol/L Potassium Level 4.5 mmol/L Chloride Level 105 mmol/L Carbon Dioxide Level 25 mmol/L Anion Gap 12 Blood Urea Nitrogen 17 mg/dL Creatinine 1.3 mg/dL Estimated GFR (Cockcroft-Gault) 66.6 BUN/Creatinine Ratio 13 Glucose Level 137 mg/dL Calcium Level 9.7 mg/dL Magnesium Level 1.8 mg/dL Total Bilirubin 1.1 mg/dL Aspartate Amino Transf (AST/SGOT) 16 U/L Alanine Aminotransferase (ALT/SGPT) 29 U/L Alkaline Phosphatase 98 U/L Troponin I Quantitative < 0.017 ng/mL Total Protein 7.4 g/dL Albumin 4.0 g/dL Albumin/Globulin Ratio 1.2 Urine Collection Type Unknown Urine Color Yellow Urine Clarity Clear Urine pH 6.0 Urine Specific [place] 1.020 Urine Protein 30 mg/dL Urine Glucose (UA) Negative mg/dL Urine Ketones (Stick) Negative mg/dL Urine Blood Negative Urine Nitrite Negative Urine Bilirubin Negative Urine Urobilinogen Dipstick 0.2 mg/dL Urine Leukocyte Esterase Negative Urine RBC 0 /HPF Urine WBC 0 /HPF Urine Squamous Epithelial Cells Occ /LPF Urine Bacteria 0 /HPF Laboratory Tests Test 10/04/20 10:22 Glucose (Fingerstick) 135 mg/dL (70-99) H EKG: EKG: EKG was done at 1045 AM, heart rate of 83 bpm, sinus rhythm, NO STEMI. Radiology/Procedures: Radiology/Procedures: [][facility] [address] [place], [place] [id number] IMAGING REPORT Signed PATIENT: SAVANNAH AVALOS ACCOUNT: [id number] : 1955 LOCATION: ER AGE: 65 SEX: M EXAM STATUS: REG ER ORD. PHYSICIAN: SIMEON RUIZ DO REASON: SLURRRED SPEECH, FACIAL DROOPING SINCE SATURDAY PROCEDURE: CT HEAD WO CONTRAST Axial CT images of the head were obtained without IV contrast. Comparison: 05/28/2020 . Indication: slurred speech and facial droop Findings: No mass effect or hemorrhage is seen. The ventricles are not enlarged or effaced. No midline shift is noted. There is no intra or extra axial fluid collection. No bony or soft tissue abnormality is seen. The visualized paranasal sinuses are clear. Impression: 1. No acute intracranial process seen on non- contrast head CT. Exposure: One or more of the following individualized dose reduction techniques were utilized for this examination: 1. Automated exposure control 2. Adjustment of the mA and/or kV according to patient size 3. Use of iterative reconstruction technique Electronically signed by: Eddie Junior MD (10/04/2020 11:19 AM) [id number] DICTATED and SIGNED BY: EDDIE JUNIOR MD DATE: 10/04/20 [id number] 0 Course & Med Decision Making: Course & Med Decision Making Pertinent Labs and Imaging studies reviewed. (See chart for details) Discussed with Dr. Avalos, neurologist on all, he came to the ER, evaluated patient, recommended to admit patient for further evaluation and treatment. Dragon Disclaimer: Dragon Disclaimer: This electronic medical record was generated, in whole or in part, using a voice recognition dictation system. Departure Departure Impression: Primary Impression: CVA (cerebral vascular accident) Disposition: 09 ADMITTED INPT THIS HOSP Condition: STABLE Referrals: RAYMON HEALY MD (PCP) SIMEON RUIZ DO Oct 04, 2020 10:41
[2020-10-04 10:44] LABS: BASO # 0.1 x10^3/uL (0.0-0.2); BASO % 1 % (0-3); EOS # 0.2 x10^3/uL (0.0-0.7); EOS % 4 % (0-3); HEMATOCRIT 42.6 % (39.0-53.0); HEMOGLOBIN 14.3 g/dL (13.0-17.5); LYMPH % 33 % (24-48); MEAN CORPUSCULAR HEMOGLOBIN 29 pg (25-35); MEAN CORPUSCULAR HGB CONC 34 g/dL (31-37); MEAN CORPUSCULAR VOLUME 86 fL (79-100); MONO # 0.5 x10^3/uL (0.0-1.1); MONO % 9 % (0-9); NEUT # 3.1 x10^3/uL (1.8-7.7); NEUT % 53 % (31-73); PLATELET COUNT 205 x10^3/uL (140-400); RED BLOOD COUNT 4.96 x10^6/uL (4.30-5.70); RED CELL DISTRIBUTION WIDTH 13.4 % (11.5-14.5); WHITE BLOOD COUNT 5.9 x10^3/uL (4.0-11.0)
--- NOTE | 2020-10-04 10:54 | EKG ---
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
[2020-10-04 11:00] LABS: CALCIUM 9.7 mg/dL (8.5-10.1); CREATININE 1.3 mg/dL (0.7-1.3); GFR 66.6; POTASSIUM 4.5 mmol/L (3.5-5.1)
[2020-10-04 11:06] LABS: ALBUMIN/GLOBULIN RATIO 1.2 (1.0-1.7); MAGNESIUM 1.8 mg/dL (1.8-2.4); TOTAL BILIRUBIN 1.1 mg/dL (0.2-1.0); TOTAL PROTEIN 7.4 g/dL (6.4-8.2)
--- NOTE | 2020-10-04 11:21 | RAD ---
Axial CT images of the head were obtained without IV contrast. Comparison: 05/28/2020 . Indication: slurred speech and facial droop Findings: No mass effect or hemorrhage is seen. The ventricles are not enlarged or effaced. No midline shift is noted. There is no intra or extra axial fluid collection. No bony or soft tissue abnormality is seen. The visualized paranasal sinuses are clear. Impression: 1. No acute intracranial process seen on non- contrast head CT. Exposure: One or more of the following individualized dose reduction techniques were utilized for thi s examination: 1. Automated exposure control 2. Adjustment of the mA and/or kV according to patient size 3. Use of iterative reconstruction technique Electronically signed by: Eddie Junior MD (10/04/2020 11:19 AM) [id number]
[2020-10-04 11:57] LABS: BILIRUBIN,URINE NEGATIVE (NEG); CLARITY,URINE CLEAR; COLOR,URINE YELLOW; NITRITE,URINE NEGATIVE (NEG); PROTEIN,URINE 30 mg/dL (NEG-TRACE); UROBILINOGEN,URINE 0.2 mg/dL (0.2 mg/dL)
[2020-10-04 12:03] LABS: BACTERIA,URINE 0 /HPF (0-FEW); RBC,URINE 0 /HPF (0-2); WBC,URINE 0 /HPF (0-4)
[2020-10-04] MEDS ORDERED: ASPIRIN RECTAL 300 MG SUPP. PR PRN (13:45)
[2020-10-04] MEDS ORDERED: ACETAMINOPHEN 325 MG TABLET. PO PRN (13:45)
--- NOTE | 2020-10-04 13:52 | PDOC2 ---
NEUROLOGY CONSULT Date of Service DOS: DATE: 10/04/20 TIME: 13:44 Reason for Consult Reason for Consult: Stroke Referring Physician Referring Physician: Dr. Macias Source Source: Caregiver (), Chart review, Patient History of Present Illness History of Present Illness The patient is a 64-year-old right-handed male who had some left facial droop and food dripping out of his mouth starting 2 nights ago. He has had some trouble walking. He finally comes to the emergency department today. I saw him in the office along with my nurse practitioner regarding right-sided weakness and dysarthria that occurred on 05/28/2020. CT head and carotid Doppler studies were negative. He did not want to undergo MRI. An echocardiogram is scheduled for 10/12. I also did an EMG on him on 09/07, showing bilateral carpal and cubital tunnel syndrome and a left Guyon's canal syndrome. He is going through Worker's Compensation for further therapy. He is already taking aspirin and atorvastatin. He denies headache, diplopia, or cognitive change. 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 Current Medications Current Medications Current Medications Atorvastatin Calcium (Lipitor) 80 mg QHS PO ; Start 10/04/20 at 21:00; Status UNV Acetaminophen (Tylenol) 650 mg PRN Q6HRS PRN PO MILD PAIN / TEMP > 100.3'F; Start 10/04/20 at 13:45; Status UNV Aspirin (Ecotrin) 325 mg DAILYWBKFT PO ; Start 10/05/20 at 08:00; Status UNV Aspirin (Aspirin Rectal Supp) 300 mg PRN DAILY PRN MA IF UNABLE TO TAKE PO; Start 10/04/20 at 13:45; Status UNV Active Scripts Active Reported Aleve (Naproxen Sodium) 220 Mg Capsule 220 Mg PO DAILY [Vitamin D3] 25 Mcg DAILY Janumet 50-1,000 Mg Tablet (Sitagliptin Phos/Metformin Hcl) 1 Each Tablet 1 Tab PO BID Carvedilol (Carvedilol) 3.125 Mg Tablet 3.125 Mg PO BID Losartan-Hctz 100-25 Mg Tab (Losartan/Hydrochlorothiazide) 1 Each Tablet 1 Tab PO DAILY Amlodipine Besylate 10 Mg Tablet 10 Mg PO HS Lipitor (Atorvastatin Calcium) 10 Mg Tablet 10 Mg PO HS Allergies Allergies: Coded Allergies: No Known Drug Allergies (Unverified , 06/03/20) ROS Review of System Negative for fever, chills, weight loss, shortness of breath, chest pain, indigestion, hematochezia, melena, and dysuria. Full 14-point review of systems is negative. Physical Exam Physical Examination General: Well-developed, well-nourished Black male in no acute distress HEENT: Normocephalic andatraumatic. Tympanic membranes clear.Temporal arteriespulsatile and nontender.Fundoscopic exam unremarkable Neck: Supple without bruit, no meningismus Musculoskeletal: Stability:see neurologic. Gait exam:see neurologic. Tone:see neurologic.Strength:see neurologic. Neurological: Mental Status:intact, orientation, memory, attention span/concentration, language, fund of knowledge normal. Cranial Nerves:Pupils equal and reactive to light, extraocular movements areintact, visual scott are full to confrontation. Facial sensation is normal. There is a left central facial palsy. Vestibulo-ocular reflex is intact. Palate elevates and tongue protrudes in mi dline. All other cranial related problems are negative except as mentioned before.Reflexes:2+ and symmetric with flexor plantar responses. Motor:5/5 strength with normal tone and bulk, but there is a left pronator drift. Coordination:Finger-nose finger and wdhf-cl-udtc testing are normal. Rapid alternating movements and fine finger movements are intact. Gait:A little ataxic. Sensory:Normal pinprick, vibration, light touch, proprioception. Vitals VITALS Vital Signs Date Time Temp Pulse Resp B/P (MAP) Pulse Ox O2 Delivery O2 Flow Rate FiO2 10/04/20 10:25 97.6 91 18 142/70 (94) 98 Room Air 97.6 Labs Labs Laboratory Tests Test 10/04/20 10:22 10/04/20 10:25 10/04/20 11:35 Glucose (Fingerstick) 135 mg/dL (70-99) White Blood Count 5.9 x10^3/uL (4.0-11.0) Red Blood Count 4.96 x10^6/uL (4.30-5.70) Hemoglobin 14.3 g/dL (13.0-17.5) Hematocrit 42.6 % (39.0-53.0) Mean Corpuscular Volume 86 fL (79-100) Mean Corpuscular Hemoglobin 29 pg (25-35) Mean Corpuscular Hemoglobin Concent 34 g/dL (31-37) Red Cell Distribution Width 13.4 % (11.5-14.5) Platelet Count 205 x10^3/uL (140-400) Neutrophils (%) (Auto) 53 % (31-73) Lymphocytes (%) (Auto) 33 % (24-48) Monocytes (%) (Auto) 9 % (0-9) Eosinophils (%) (Auto) 4 % (0-3) Basophils (%) (Auto) 1 % (0-3) Neutrophils # (Auto) 3.1 x10^3/uL (1.8-7.7) Lymphocytes # (Auto) 2.0 x10^3/uL (1.0-4.8) Monocytes # (Auto) 0.5 x10^3/uL (0.0-1.1) Eosinophils # (Auto) 0.2 x10^3/uL (0.0-0.7) Basophils # (Auto) 0.1 x10^3/uL (0.0-0.2) Sodium Level 142 mmol/L (136-145) Potassium Level 4.5 mmol/L (3.5-5.1) Chloride Level 105 mmol/L (98-107) Carbon Dioxide Level 25 mmol/L (21-32) Anion Gap 12 (6-14) Blood Urea Nitrogen 17 mg/dL (8-26) Creatinine 1.3 mg/dL (0.7-1.3) Estimated GFR (Cockcroft-Gault) 66.6 BUN/Creatinine Ratio 13 (6-20) Glucose Level 137 mg/dL (70-99) Calcium Level 9.7 mg/dL (8.5-10.1) Magnesium Level 1.8 mg/dL (1.8-2.4) Total Bilirubin 1.1 mg/dL (0.2-1.0) Aspartate Amino Transf (AST/SGOT) 16 U/L (15-37) Alanine Aminotransferase (ALT/SGPT) 29 U/L (16-63) Alkaline Phosphatase 98 U/L (46-116) Troponin I Quantitative < 0.017 ng/mL (0.000-0.055) Total Protein 7.4 g/dL (6.4-8.2) Albumin 4.0 g/dL (3.4-5.0) Albumin/Globulin Ratio 1.2 (1.0-1.7) Urine Collection Type Unknown Urine Color Yellow Urine Clarity Clear Urine pH 6.0 (<5.0-8.0) Urine Specific [place] 1.020 (1.000-1.030) Urine Protein 30 mg/dL (NEG-TRACE) Urine Glucose (UA) Negative mg/dL (NEG) Urine Ketones (Stick) Negative mg/dL (NEG) Urine Blood Negative (NEG) Urine Nitrite Negative (NEG) Urine Bilirubin Negative (NEG) Urine Urobilinogen Dipstick 0.2 mg/dL (0.2 mg/dL) Urine Leukocyte Esterase Negative (NEG) Urine RBC 0 /HPF (0-2) Urine WBC 0 /HPF (0-4) Urine Squamous Epithelial Cells Occ /LPF Urine Bacteria 0 /HPF (0-FEW) Laboratory Tests Test 10/04/20 10:22 10/04/20 10:25 10/04/20 11:35 Glucose (Fingerstick) 135 mg/dL (70-99) White Blood Count 5.9 x10^3/uL (4.0-11.0) Red Blood Count 4.96 x10^6/uL (4.30-5.70) Hemoglobin 14.3 g/dL (13.0-17.5) Hematocrit 42.6 % (39.0-53.0) Mean Corpuscular Volume 86 fL (79-100) Mean Corpuscular Hemoglobin 29 pg (25-35) Mean Corpuscular Hemoglobin Concent 34 g/dL (31-37) Red Cell Distribution Width 13.4 % (11.5-14.5) Platelet Count 205 x10^3/uL (140-400) Neutrophils (%) (Auto) 53 % (31-73) Lymphocytes (%) (Auto) 33 % (24-48) Monocytes (%) (Auto) 9 % (0-9) Eosinophils (%) (Auto) 4 % (0-3) Basophils (%) (Auto) 1 % (0-3) Neutrophils # (Auto) 3.1 x10^3/uL (1.8-7.7) Lymphocytes # (Auto) 2.0 x10^3/uL (1.0-4.8) Monocytes # (Auto) 0.5 x10^3/uL (0.0-1.1) Eosinophils # (Auto) 0.2 x10^3/uL (0.0-0.7) Basophils # (Auto) 0.1 x10^3/uL (0.0-0.2) Sodium Level 142 mmol/L (136-145) Potassium Level 4.5 mmol/L (3.5-5.1) Chloride Level 105 mmol/L (98-107) Carbon Dioxide Level 25 mmol/L (21-32) Anion Gap 12 (6-14) Blood Urea Nitrogen 17 mg/dL (8-26) Creatinine 1.3 mg/dL (0.7-1.3) Estimated GFR (Cockcroft-Gault) 66.6 BUN/Creatinine Ratio 13 (6-20) Glucose Level 137 mg/dL (70-99) Calcium Level 9.7 mg/dL (8.5-10.1) Magnesium Level 1.8 mg/dL (1.8-2.4) Total Bilirubin 1.1 mg/dL (0.2-1.0) Aspartate Amino Transf (AST/SGOT) 16 U/L (15-37) Alanine Aminotransferase (ALT/SGPT) 29 U/L (16-63) Alkaline Phosphatase 98 U/L (46-116) Troponin I Quantitative < 0.017 ng/mL (0.000-0.055) Total Protein 7.4 g/dL (6.4-8.2) Albumin 4.0 g/dL (3.4-5.0) Albumin/Globulin Ratio 1.2 (1.0-1.7) Urine Collection Type Unknown Urine Color Yellow Urine Clarity Clear Urine pH 6.0 (<5.0-8.0) Urine Specific [place] 1.020 (1.000-1.030) Urine Protein 30 mg/dL (NEG-TRACE) Urine Glucose (UA) Negative mg/dL (NEG) Urine Ketones (Stick) Negative mg/dL (NEG) Urine Blood Negative (NEG) Urine Nitrite Negative (NEG) Urine Bilirubin Negative (NEG) Urine Urobilinogen Dipstick 0.2 mg/dL (0.2 mg/dL) Urine Leukocyte Esterase Negative (NEG) Urine RBC 0 /HPF (0-2) Urine WBC 0 /HPF (0-4) Urine Squamous Epithelial Cells Occ /LPF Urine Bacteria 0 /HPF (0-FEW) Images Images l CT images of the head were obtained without IV contrast. Comparison: 05/28/2020 . Indication: slurred speech and facial droop Findings: No mass effect or hemorrhage is seen. The ventricles are not enlarged or effaced. No midline shift is noted. There is no intra or extra axial fluid collection. No bony or soft tissue abnormality is seen. The visualized paranasal sinuses are clear. Impression: 1. No acute intracranial process seen on non- contrast head CT. Assessment/Plan Assessment/Plan Impression: Stroke, most likely lacunar either in brainstem or internal capsule Hypertension, hyperlipidemia, diabetes Bilateral carpal tunnel syndrome, cubital tunnel syndrome, left Guyon's canal syndrome per EMG, 09/07/2020 Recommendations: Aspirin and statin, increased doses Swallow evaluation No need to repeat carotid Doppler studies Echocardiogram MRI brain Observe 1 or 2 nights Rehabilitation modalities. Discussed with patient and his . Thank you for letting me help with the patient's care. JEROME MCMILLAN MD Oct 04, 2020 13:52
[2020-10-04] MEDS: ASPIRIN ENTERIC COATED 325 MG TABLET.DR. PO SCH (14:00)
--- NOTE | 2020-10-04 17:01 | RAD ---
MRI BRAIN WO History:Reason: CVA, ataxia, left facial palsy / Spl. Instructions: / History: Technique: Multiplanar, multi sequential MR imaging was performed of the brain without contrast. Comparison: CT October 04, 2020 Findings: Acute to subacute right banks radiata infarct. Additional smaller acute right frontal subcortical in farct. Tiny chronic right cerebellar lacunar infarct. Mild additional foci of FLAIR hyperintensity within the hemispheric white matter, most often due to c hronic microvascular ischemia. Imaged orbits are unremarkable. Imaged paranasal sinuses and mastoid air cells are clear. Impression: 1. Acute to subacute right banks radiata and frontal subcortical infarcts. 2. Mild sequelae of chronic microvascular ischemia. FOR INTERNAL CODING PURPOSES Critical result: Findings discussed with patient's nurse Gabrielle at 10/04/2020 4:58 PM. RESULT CODE: (C) Electronically signed by: Solomon Templeton DO (10/04/2020 4:58 PM) [facility]
[2020-10-04 19:45] VITALS: BP 149/83
[2020-10-04] MEDS ORDERED: ATORVASTATIN CALCIUM 40 MG TABLET. PO SCH (21:00)
--- NOTE | 2020-10-04 21:50 | NUR ---
Pt arrived to unit per rehana at 1930, pt assisted to bed with standby assist. Tele monitor applied to pt vs obtained and stable assessment completed poc explained to pt pt denied pain at this time will resume care and continue to monitor pt. Call light placed in reach.
[2020-10-04 22:57] VITALS: BP 131/64
[2020-10-05 03:02] VITALS: BP 126/64
[2020-10-05 07:00] VITALS: BP 135/80
[2020-10-05 07:17] LABS: CHOLESTEROL/HDL RATIO 3.9
[2020-10-05] MEDS ORDERED: MINERAL OIL/PETROLATUM,WHITE OPHTH OINT 3.5GM TUBE. OU PRN (08:30)
[2020-10-05] MEDS ORDERED: POLYVINYL ALCOHOL 1.4% OPHTH SOLUTION 15ML BOTTLE. OU PRN (09:00)
--- NOTE | 2020-10-05 09:25 | PDOC ---
Provider Note Date of Service: DATE: 10/05/20 TIME: 09:24 Provider Note dictaed Justifications for Admission Other Justification DYLAN MARSHALL MD Oct 05, 2020 09:25
[2020-10-05] MEDS: ASPIRIN ENTERIC COATED 325 MG TABLET.DR. PO SCH (09:42)
--- NOTE | 2020-10-05 09:45 | SSS ---
ADMIT DATE: 10/05/2020 TWENTY-THREE HOUR SUMMARY HOSPITAL SUMMARY: A 65-year-old black female, known diabetic, hypertensive, who 3 days ago developed some left-sided facial droop and a little bit of dysarthria came in for those symptoms. CT scan was negative. MRI of the head showed 2 small lacunar infarcts on the right side consistent with his symptoms. All laboratory studies were unremarkable. His LDL cholesterol was 82 and blood pressure remained stable. Aspirin dose has been increased to a full dose aspirin. He has been seen by Dr. Avalos in therapy. We will clear him this morning and to be followed as an outpatient at this point as other outpatient testing has been accomplished. FINAL DIAGNOSIS: Subacute cerebrovascular accident, lacunar type. OPERATIONS, PROCEDURES, COMPLICATIONS: None. CONSULTATIONS: Dr. Garcia. DISPOSITION: Meds remain the same except increase his aspirin dose from 81 mg to 325 mg daily. He will see Dr. Macias and follow up in the office in 4-5 days and be off work to allow recovery until that time that he is improved. Prognosis is good. DYLAN MARSHALL MD DR: ADRIANA/juani JOB#: [id number] / [id number]
[2020-10-05] MEDS ORDERED: LINAGLIPTIN 5 MG TABLET PO SCH (10:00)
[2020-10-05] MEDS ORDERED: metFORMIN 500 MG TABLET PO SCH (10:00)
[2020-10-05] MEDS ORDERED: hydroCHLOROthiazide 25 MG TABLET PO SCH (10:00)
[2020-10-05] MEDS ORDERED: LOSARTAN POTASSIUM 50 MG TABLET. PO SCH (10:00)
[2020-10-05] MEDS ORDERED: CARVEDILOL 3.125 MG TABLET. PO SCH (10:00)
[2020-10-05 11:00] VITALS: BP 108/59
--- NOTE | 2020-10-05 11:04 | PDOC ---
PROGRESS NOTES Date of Service DATE: 10/05/20 TIME: 11:01 Assessment Acute to subacute right banks radiata and frontal subcortical infarcts Hypertension, hyperlipidemia, diabetes Bilateral carpal tunnel syndrome, cubital tunnel syndrome, left Guyon's canal syndrome per EMG, 09/07/2020 Plan Await echocardiogram Aspirin and statin, increased doses Rehabilitation modalities. Home later today if rehab clears. Follow-up with my nurse practitioner as scheduled Discussed with Dr. Felix Subjective No complaints, feels better Objective Vital Signs Date Time Temp Pulse Resp B/P (MAP) Pulse Ox O2 Delivery O2 Flow Rate FiO2 10/05/20 09:43 80 10/05/20 07:00 97.9 18 135/80 (98) 97 Room Air 97.9 Intake and Output0 10/05/20 07:00 Intake Total 0 ml Balance 0 ml Intake Oral 0 ml # Voids 2 PHYSICAL EXAM Physical Exam: Alert. Oriented to time, place and person. PERRL. EOMI. CN: Left central facial improved Muscle tone: normal. Muscle strength: 5/5 DTR: 1+ Plantar reflex: Flexor Gait: not examined in bed. Sensory exam: no abnormal findings. No cerebellar signs elicited. Review of Relevant I have reviewed the following items gaye (where applicable) has been applied. Labs Laboratory Tests Test 10/04/20 10:22 10/04/20 10:25 10/04/20 11:35 10/05/20 06:10 Glucose (Fingerstick) 135 mg/dL (70-99) White Blood Count 5.9 x10^3/uL (4.0-11.0) Red Blood Count 4.96 x10^6/uL (4.30-5.70) Hemoglobin 14.3 g/dL (13.0-17.5) Hematocrit 42.6 % (39.0-53.0) Mean Corpuscular Volume 86 fL (79-100) Mean Corpuscular Hemoglobin 29 pg (25-35) Mean Corpuscular Hemoglobin Concent 34 g/dL (31-37) Red Cell Distribution Width 13.4 % (11.5-14.5) Platelet Count 205 x10^3/uL (140-400) Neutrophils (%) (Auto) 53 % (31-73) Lymphocytes (%) (Auto) 33 % (24-48) Monocytes (%) (Auto) 9 % (0-9) Eosinophils (%) (Auto) 4 % (0-3) Basophils (%) (Auto) 1 % (0-3) Neutrophils # (Auto) 3.1 x10^3/uL (1.8-7.7) Lymphocytes # (Auto) 2.0 x10^3/uL (1.0-4.8) Monocytes # (Auto) 0.5 x10^3/uL (0.0-1.1) Eosinophils # (Auto) 0.2 x10^3/uL (0.0-0.7) Basophils # (Auto) 0.1 x10^3/uL (0.0-0.2) Sodium Level 142 mmol/L (136-145) Potassium Level 4.5 mmol/L (3.5-5.1) Chloride Level 105 mmol/L (98-107) Carbon Dioxide Level 25 mmol/L (21-32) Anion Gap 12 (6-14) Blood Urea Nitrogen 17 mg/dL (8-26) Creatinine 1.3 mg/dL (0.7-1.3) Estimated GFR (Cockcroft-Gault) 66.6 BUN/Creatinine Ratio 13 (6-20) Glucose Level 137 mg/dL (70-99) Calcium Level 9.7 mg/dL (8.5-10.1) Magnesium Level 1.8 mg/dL (1.8-2.4) Total Bilirubin 1.1 mg/dL (0.2-1.0) Aspartate Amino Transf (AST/SGOT) 16 U/L (15-37) Alanine Aminotransferase (ALT/SGPT) 29 U/L (16-63) Alkaline Phosphatase 98 U/L (46-116) Troponin I Quantitative < 0.017 ng/mL (0.000-0.055) Total Protein 7.4 g/dL (6.4-8.2) Albumin 4.0 g/dL (3.4-5.0) Albumin/Globulin Ratio 1.2 (1.0-1.7) Urine Collection Type Unknown Urine Color Yellow Urine Clarity Clear Urine pH 6.0 (<5.0-8.0) Urine Specific [place] 1.020 (1.000-1.030) Urine Protein 30 mg/dL (NEG-TRACE) Urine Glucose (UA) Negative mg/dL (NEG) Urine Ketones (Stick) Negative mg/dL (NEG) Urine Blood Negative (NEG) Urine Nitrite Negative (NEG) Urine Bilirubin Negative (NEG) Urine Urobilinogen Dipstick 0.2 mg/dL (0.2 mg/dL) Urine Leukocyte Esterase Negative (NEG) Urine RBC 0 /HPF (0-2) Urine WBC 0 /HPF (0-4) Urine Squamous Epithelial Cells Occ /LPF Urine Bacteria 0 /HPF (0-FEW) Triglycerides Level 98 mg/dL (0-150) Cholesterol Level 137 mg/dL (0-200) LDL Cholesterol, Calculated 82 mg/dL (0-100) VLDL Cholesterol, Calculated 20 mg/dL (0-40) Non-HDL Cholesterol Calculated 102 mg/dL (0-129) HDL Cholesterol 35 mg/dL (40-60) Cholesterol/HDL Ratio 3.9 Laboratory Tests Test 10/04/20 11:35 10/05/20 06:10 Urine Collection Type Unknown Urine Color Yellow Urine Clarity Clear Urine pH 6.0 (<5.0-8.0) Urine Specific [place] 1.020 (1.000-1.030) Urine Protein 30 mg/dL (NEG-TRACE) Urine Glucose (UA) Negative mg/dL (NEG) Urine Ketones (Stick) Negative mg/dL (NEG) Urine Blood Negative (NEG) Urine Nitrite Negative (NEG) Urine Bilirubin Negative (NEG) Urine Urobilinogen Dipstick 0.2 mg/dL (0.2 mg/dL) Urine Leukocyte Esterase Negative (NEG) Urine RBC 0 /HPF (0-2) Urine WBC 0 /HPF (0-4) Urine Squamous Epithelial Cells Occ /LPF Urine Bacteria 0 /HPF (0-FEW) Triglycerides Level 98 mg/dL (0-150) Cholesterol Level 137 mg/dL (0-200) LDL Cholesterol, Calculated 82 mg/dL (0-100) VLDL Cholesterol, Calculated 20 mg/dL (0-40) Non-HDL Cholesterol Calculated 102 mg/dL (0-129) HDL Cholesterol 35 mg/dL (40-60) Cholesterol/HDL Ratio 3.9 Medications Current Medications Atorvastatin Calcium (Lipitor) 80 mg QHS PO ; Start 10/04/20 at 21:00 Acetaminophen (Tylenol) 650 mg PRN Q6HRS PRN PO MILD PAIN / TEMP > 100.3'F; Start 10/04/20 at 13:45 Aspirin (Ecotrin) 325 mg DAILYWBKFT PO Last administered on 10/05/20at 09:42; Start 10/04/20 at 14:00 Aspirin (Aspirin Rectal Supp) 300 mg PRN DAILY PRN ND IF UNABLE TO TAKE PO; Start 10/04/20 at 13:45; Stop 10/05/20 at 09:16; Status DC Multi-Ingred Cream/Lotion/Oil/ Oint (Artificial Tears Eye Ointment) 1 isidra PRN Q1HR PRN OU DRY EYE; Start 10/05/20 at 08:30 Glycerin/ Hypromellose/ Polyethylene (Artificial Tears) 1 drop PRN Q15MIN PRN OU DRY EYE; Start 10/05/20 at 09:00 Amlodipine Besylate (Norvasc) 10 mg HS PO ; Start 10/05/20 at 21:00 Atorvastatin Calcium (Lipitor) 10 mg HS PO ; Start 10/05/20 at 21:00; Stop 10/05/20 at 09:21; Status DC Carvedilol (Coreg) 3.125 mg BIDWMEALS PO Last administered on 10/05/20at 09:42; Start 10/05/20 at 10:00 Non-Formulary Medication (Losartan/ Hydrochlorothiazide (Losartan-Hctz 100-25 Mg Tab)) 1 tab DAILY PO ; Start 10/06/20 at 09:00; Stop 10/05/20 at 09:21; Status DC Non-Formulary Medication (Sitagliptin Phos/Metformin Hcl (Janumet 50-1,000 Mg Tablet)) 1 tab BID PO ; Start 10/05/20 at 21:00; Stop 10/05/20 at 09:21; Status DC Losartan Potassium (Cozaar) 100 mg DAILY PO Last administered on 10/05/20at 09:43; Start 10/05/20 at 10:00 Hydrochlorothiazide (Hydrodiuril) 25 mg DAILY PO Last administered on 10/05/20at 09:42; Start 10/05/20 at 10:00 Linagliptin (Tradjenta) 5 mg DAILY PO Last administered on 10/05/20at 09:42; Start 10/05/20 at 10:00 Metformin HCl (Glucophage) 1,000 mg BIDWMEALS PO ; Start 10/05/20 at 10:00 Active Scripts Active Reported Aleve (Naproxen Sodium) 220 Mg Capsule 220 Mg PO DAILY [Vitamin D3] 25 Mcg DAILY Janumet 50-1,000 Mg Tablet (Sitagliptin Phos/Metformin Hcl) 1 Each Tablet 1 Tab PO BID Carvedilol (Carvedilol) 3.125 Mg Tablet 3.125 Mg PO BID Losartan-Hctz 100-25 Mg Tab (Losartan/Hydrochlorothiazide) 1 Each Tablet 1 Tab PO DAILY Amlodipine Besylate 10 Mg Tablet 10 Mg PO HS Lipitor (Atorvastatin Calcium) 10 Mg Tablet 10 Mg PO HS Vitals/I & O Vital Sign - Last 24 Hours 10/04/20 10/04/20 10/04/20 10/05/20 19:30 19:45 22:57 03:02 Temp 98.0 98.1 98.2 98.0 98.1 98.2 Pulse 79 72 76 Resp 18 18 18 B/P (MAP) 149/83 (105) 131/64 (86) 126/64 (84) Pulse Ox 97 97 94 O2 Delivery Room Air Room Air Room Air Room Air 10/05/20 10/05/20 10/05/20 07:00 09:42 09:43 Temp 97.9 97.9 Pulse 92 80 80 Resp 18 B/P (MAP) 135/80 (98) Pulse Ox 97 O2 Delivery Room Air Intake and Output 10/04/20 10/04/20 10/05/20 15:00 23:00 07:00 Intake Total 0 ml Balance 0 ml Images MRI BRAIN WO History:Reason: CVA, ataxia, left facial palsy / Spl. Instructions: / History: Technique: Multiplanar, multi sequential MR imaging was performed of the brain without contrast. Comparison: CT October 04, 2020 Findings: Acute to subacute right banks radiata infarct. Additional smaller acute right frontal subcortical infarct. Tiny chronic right cerebellar lacunar infarct. Mild additional foci of FLAIR hyperintensity within the hemispheric white matter, most often due to chronic microvascular ischemia. Imaged orbits are unremarkable. Imaged paranasal sinuses and mastoid air cells are clear. Impression: 1. Acute to subacute right banks radiata and frontal subcortical infarcts. 2. Mild sequelae of chronic microvascular ischemia. Justicifation of Admission Dx: Justifications for Admission: Justification of Admission Dx: N/A JEROME MCMILLAN MD Oct 05, 2020 11:04
[2020-10-05] MEDS ORDERED: ASPI325T8 PO (12:34)
--- NOTE | 2020-10-05 14:51 | NUR ---
SS following up with discharge planning. SS reviewed pt chart and discussed with pt RN. Pt is from home with spouse and is currently on room air. Pt had ST evaluation and ECHO. Discharge order on the chart for home with self care.
[2020-10-05] MEDS ORDERED: ATOR80TA72 PO (15:29)
--- NOTE | 2020-10-05 16:11 | CARD ---
MR#: [id number] Date of Study: 10/05/2020 Ordering Physician: JEROME MCMILLNA, Referring Physician: JEROME MCMILLAN, Tech: Nubia Miles RDCS APPROVED REPORT EXAM: Two-dimensional and M-mode echocardiogram with Doppler and color Doppler. Other Information Quality : Fair INDICATION CVA/TIA 2D DIMENSIONS RVDd2.4 (2.9-3.5cm)Left Atrium(2D)4.1 (1.6-4.0cm) IVSd1.4 (0.7-1.1cm)Aortic Root(2D)3.3 (2.0-3.7cm) LVDd4.6 (3.9-5.9cm)LVOT Diameter2.4 (1.8-2.4cm) PWd0.9 (0.7-1.1cm)LVDs3.4 (2.5-4.0cm) FS (%) 26.3 %SV49.3 ml LVEF(%)51.6 (>50%) Aortic Valve AoV Peak Tristen.91.8cm/sAoV VTI13.8cm AO Peak GR.3.4mmHgLVOT Peak Tristen.68.5cm/s AO Mean GR.2mmHgAVA (VMAX)3.49cm2 JAILYN (VTI)4.90cm2 Mitral Valve MV E Lqwehrag30.4cm/sMV DECEL [id number] MV A Dywdobmb67.4cm/sE/A Ratio0.7 Tricuspid Valve TR P. Vsqgiruc369tz/sRAP YTGZJNJP9whYk TR Peak Gr.64neEuNMUG96kmXk Pulmonary Vein S1 Oetodydr51.6cm/sD2 Ifdcdfsq86.2cm/s LEFT VENTRICLE The left ventricle is normal size. There is mild asymmetric septal left ventricular hypertrophy. The left ventricular systolic function is normal and the ejection fraction is within normal range. The Ej ection Fraction is 55-60%. There is normal LV segmental wall motion. Transmitral Doppler flow pattern is Grade I-abnormal relaxation pattern. RIGHT VENTRICLE RV not well visualized. ATRIA The left atrium is mildly dilated. Atrial septum is not well visualized, grossly no obvious right to left shunting on color doppler. AORTIC VALVE Grossly trileaflet with mild calcification. Doppler and Color Flow revealed no significant aortic reg urgitation. There is no significant aortic valvular stenosis. MITRAL VALVE The mitral valve is calcified but opens well. Mitral annular calcification is mild. There is no evide nce of mitral valve prolapse. There is no mitral valve stenosis. Doppler and Color Flow revealed no m itral valve regurgitation noted. TRICUSPID VALVE Not well visualized. Doppler and Color Flow revealed trace tricuspid regurgitation. There is mild pul monary hypertension. The PA pressure was estimated at 34 mmHg. There is no tricuspid valve stenosis. PULMONIC VALVE The pulmonic valve is not well visualized. Doppler and Color Flow revealed trace pulmonic valvular re gurgitation. There is no pulmonic valvular stenosis. GREAT VESSELS The aortic root is normal in size. The ascending aorta is not well seen. The IVC is normal in size an d collapses >50% with inspiration. PERICARDIAL EFFUSION There is no evidence of significant pericardial effusion. Critical Notification Critical Value: No <Conclusion> The left ventricular systolic function is normal and the ejection fraction is within normal range. Th e Ejection Fraction is 55-60%. There is normal LV segmental wall motion. Atrial septum is not well visualized, grossly no obvious right to left shunting on color doppler. Technically difficult study. Signed by : Antonio Sanchez, Electronically Approved : 10/05/2020 16:10:33
--- NOTE | 2020-10-05 17:14 | NUR ---
Discharge: Discharge teaching verbal and written. Reviewed stroke prevention, HTN, DM, cholesterol, diet, follow-up, ect. patient and verbalized understanding. Red stroke folder and resources given to patient. NIH score 2. IV removed without complications, catheter tip in-tact. All belongings with patient. 2 Prescriptions called into [facility] [phone], spoke with Narayan at [phone]. Patient ambulated off of unit with and [employer]
[2020-10-05] MEDS ORDERED: ATORVASTATIN CALCIUM 10 MG TABLET. PO SCH (21:00)
[2020-10-05] MEDS ORDERED: NON FORMULARY ITEM (Sitagliptin Phos/Metformin Hcl (Janumet 50-1,000 Mg Tablet) 1 TAB) PO SCH (21:00)
[2020-10-05] MEDS ORDERED: amLODIPine BESYLATE 10 MG TABLET PO SCH (21:00)
[2020-10-06] MEDS ORDERED: NON FORMULARY ITEM (Losartan/Hydrochlorothiazide (Losartan-Hctz 100-25 Mg Tab) 1 TAB) PO SCH (09:00)
== END 2020-10-05 16:33 | disposition home or self-care (01) ==
LOC: ER 10:11 → INTOOBSV 15:29 → ED HOLD 15:29 → 2 NORTH 19:07
PROVIDERS: ADMIT Family Medicine; ATTEND Family Medicine
DX: I63.9 Cerebral infarction, unspecified (principal); E11.9 Type 2 diabetes mellitus without complications; M19.90 Unspecified osteoarthritis, unspecified site; I10 Essential (primary) hypertension; E78.00 Pure hypercholesterolemia, unspecified; E78.5 Hyperlipidemia, unspecified; G56.03 Carpal tunnel syndrome, bilateral upper limbs; M54.9 Dorsalgia, unspecified; G89.29 Other chronic pain; Z86.73 Personal history of transient ischemic attack (TIA), and cerebral infarction without residual deficits; Z98.890 Other specified postprocedural states; Z79.82 Long term (current) use of aspirin
CPT/HCPCS: 36415; 70450; 70551; 80053; 80061; 81001; 82962; 83735; 84484; 85025; 92610; 93005; 93306; 97162; 97165; 97530; 99285; G0378; G0379

== ENCOUNTER → 2020-11-24 | Outpatient (CLI) | payer BC ==
[~2020-11-24] MED LIST changes: +ASPI325T8 PO; +ATOR80TA72 PO; +OXYC1TAB15 PO; +PROM25TA10 PO
== END ==
LOC: LAB 10:12
PROVIDERS: ATTEND Orthopaedic Surgery
DX: Z01.812 Encounter for preprocedural laboratory examination (principal); G56.02 Carpal tunnel syndrome, left upper limb; G56.21 Lesion of ulnar nerve, right upper limb; Z20.822 Contact with and (suspected) exposure to COVID-19
CPT/HCPCS: U0003

== ENCOUNTER 2020-11-28 09:43 | Day surgery (SDC) | payer BC ==
[~2020-11-28] VITALS: Ht 180.3 cm; Wt 141.5 kg
[~2020-11-28 09:43] MED LIST changes: +BUPIVACAINE-EPI 0.25% 30 ML VIAL KIT. ONE; +DEXAMETHASONE SOD PHOS 4 MG/ML VIAL ONE; +HYDROmorphone 2 MG/ML VIAL IVP PRN; +LIDOCAINE 2% PF 5 ML VIAL. ONE; +MORPHINE SULFATE 2 MG/ML VIAL. IVP PRN; +ONDANSETRON PF 4 MG/2 ML VIAL. ONE; -OXYC1TAB15 PO; -PROM25TA10 PO; +PROPOFOL 10 MG/ML (20ML) VIAL. IV ONE; +ceFAZolin SODIUM 3 GM in IV DEXTROSE 5% 100ML 100 ML IV PRN; +fentaNYL PF VIAL 100 MCG/2 ML VIAL IVP PRN
[2020-11-28] MEDS: IV RINGERS,LACTATED 1000ML 1,000 ML IV SCH ×2 (10:25→13:48)
[2020-11-28] MEDS ORDERED: INSULIN LISPRO 100 UNIT/ML 3ML VIAL for OP,RR ONLY. SQ PRN (10:30)
[2020-11-28] MEDS ORDERED: methylPREDNISolone ACETATE 40 MG/ML VIAL. ONE (10:34)
[2020-11-28] MEDS ORDERED: fentaNYL PF VIAL 100 MCG/2 ML VIAL ONE ×3 (11:04→14:21)
[2020-11-28] MEDS ORDERED: ePHEDrine PF IN SALINE 50 MG/10 ML SYRINGE. IV ONE ×2 (11:43→11:45)
[2020-11-28] MEDS ORDERED: SEVOFLURANE 61 TO 120 MINUTES. IH ONE (12:22)
--- NOTE | 2020-11-28 13:13 | PDOC4 ---
Operative Note Operative Note Preoperative diagnosis: 1. 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 Carpal tunnel syndrome, right upper limb ICD-10 G56.02 3. Pain in right wrist M25.531 Postoperative diagnosis: 1. 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 Carpal tunnel syndrome, right upper limb ICD-10 G56.02 3. Pain in right wrist M25.531 Procedures performed: 1. Right cubital tunnel, neuroplasty and transposition ulnar nerve at elbow CPT 99223 2. Right wrist neuroplasty median nerve at carpal tunnel CPT 31141 3. Right wrist neuroplasty, ulnar nerve at Guyons canal at the wrist CPT 69936 4. Right wrist joint (triangulofibrocartilage) aspiration and corticosteroid injection without ultrasound guidance, CPT 01054 Surgeon: Jacob Gonzalez M.D. Presser Machine: DOMO Mendoza Anesthesia: General. Estimated blood loss: 75 mL. Complications: None. SPECIMENS: None. DRAINS: None. TOURNIQUET TIME: 38 minutes at 275 mm Hg INDICATIONS FOR PROCEDURE: Mr. Santoyo is a 65-year-old man with symptoms of numbness and weakness in the right hand, pain at the elbow, tingling which starts at the elbow and goes to the hand, and EMG findings which showed nerve compression at the elbow and wrist. He has evidence clinically of cubital tunnel syndrome, carpal tunnel syndrome, and Guyon's canal syndrome. He also has popping at the right wrist, related to an injury which is likely a TFCC sprain or tear based on clinical examination. I recommended a cortisone injection under anesthesia for initial treatment and he may require further work-up of that such as MR arthrogram. We talked about the risks benefits and alternatives of proceeding with the nerve releases and transposition surgery. We talked about the potential risks of ongoing nerve symptoms, nerve injury, bleeding, infection, scarring, neuroma, recurrent or persistent symptoms, and prolonged recovery especially the cubital tunnel release with ulnar nerve transposition, and other potential surgical and anesthetic complications. All of his questions about surgery were answered and he desired to proceed. PROCEDURE IN DETAIL: The patient was identified in the preoperative holding area. The correct right elbow and right wrist were marked by me. He was taken to the operating room where general anesthetic was used. Preoperative antibiotics were given intravenously. A tourniquet was used on the upper arm. The limb was prepared in sterile fashion with ChloraPrep solution and then sterile drapes were applied. An Esmarch bandage was used to exsanguinate the limb and the tourniquet was inflated to 275 mm Hg. A curvilinear incision was made along the thenar crease, using Kaplans cardinal line as a landmark as well as the palmaris longus tendon as the landmark. Loupe magnification was used to prevent neurovascular injury and to allow careful exploration of the nerve. A #15-blade scalpel was used to the incision. Bipolar electrocautery was used for hemostasis. The palmaris longus tendon was retracted toward the thumb. The transverse carpal ligament was identified and somewhat thickened and calcified. It was divided under direct vision using loupes, (3.5 power extended field) and #15-blade scalpel, proximally and distally and then switched to a curved iris scissor and completed the release proximally and distally. I did need to extend his incision slightly across the wrist crease in an oblique fashion, to ensure a complete release proximally. Next the Guyon's canal release was performed of the ulnar nerve at the wrist. This was done through the same incision, but I extended the subcutaneous dissection slightly ulnarly. The ulnar nerve was located in the forearm, just proximal to the wrist crease, and I divided the volar forearm fascia and located the nerve and neurovascular bundle. These were then followed distally, using the hook of the hamate as a landmark. The fascia was divided and the neurovascular bundle gently retracted to the ulnar side, and dissected distally all the way into the palm, where the deep motor branch occurs. All of the dissection was done under loupe magnification (3.5 power, extended field) to avoid nerve or vascular injury. Bipolar electrocautery was used only as needed. Hemostasis was achieved with the bipolar electrocautery. Irrigation was used. The forearm incision was closed in layers with #3-0 Vicryl and #3-0 Prolene horizontal mattress sutures. The palmar incision was closed in a single layer with 3-0 Prolene horizontal mattress sutures. Next, attention was turned to the elbow for the cubital tunnel release and transposition of the ulnar nerve. A longitudinal incision was made following the course of the ulnar nerve proximal and distal to the elbow. The medial epicondyle and the tip of the olecranon were used as landmarks. Sharp dissection was used and bipolar and monopolar cautery were used at different times depending on how close the cautery was being used to the nerve. The nerve was identified in the cubital tunnel, and then I did careful scissor dissection proximally and distally. The nerve appeared to be under tension with elbow flexion, and transposition subcutaneously was necessary to release tension on the nerve. I placed a hemostat beneath the nerve and passed the vessel loop around the ulnar nerve and used careful dissection of the nerve out of its cubital tunnel bed, using the loupe magnification throughout. I then transposed anterior to the medial epicondyle into a new subcutaneous pocket, which I made by dissecting the subcutaneous tissue from the volar forearm fascia distal and anterior to the medial epicondyle. The tourniquet was released. Bovie electrocautery was used for hemostasis. I used monopolar cautery in the subcutaneous tissues and then the bipolar cautery and placed near the nerves. Copious irrigation was used a final time. Next, the nerve was secured into its new transposed location, using 0 Vicryl sutures which replaced independently before tying any of the sutures. I placed five sutures, attaching the medial subcutaneous tissue to the medial epicondyle fascia and had my assistant chief nursing officer carefully hold the nerve retracted with [place] elevator, so as to avoid capturing the nerve in the sutures. I placed all five of the sutures first, with the nerve carefully held transposed by the [place] elevator, and then sequentially tied the sutures for capture of the nerve in its new subcutaneous pocket. Next, the subcutaneous tissues were closed with 0 Vicryl followed by 2-0 Vicryl interrupted sutures. I palpated the TFCC, on the ulnar aspect of the wrist, which is away from the incisions. I used 40 mg of Depo-Medrol and 1 mL of 0.25% bupivacaine with epinephrine injected to this into the wrist joint at the TFCC. My assistant chief nursing officer used Monocryl subcuticular running sutures in the skin. Xeroform and sterile dressings were applied. Needle and sponge counts were correct. A posterior splint was applied by my assistant chief nursing officer. There were no apparent comp lications. JACOB GONZALEZ MD Nov 28, 2020 13:13
[2020-11-28] MEDS: PROCHLORPERAZINE 10 MG/2 ML VIAL. IVP PRN ×2 (13:47→14:02)
[2020-11-28] MEDS: fentaNYL PF VIAL 100 MCG/2 ML VIAL IVP PRN ×2 (14:26→14:53)
[2020-11-28] MEDS ORDERED: oxyCODONE/APAP 5/325 1 TAB TABLET PO ONE (14:45)
[2020-11-28] MEDS ORDERED: PROMETHAZINE 12.5 MG TABLET. PO ONE (14:45)
[2020-11-28] MEDS ORDERED: OXYC1TAB15 PO (15:16)
[2020-11-28] MEDS ORDERED: PROM25TA10 PO (15:16)
[2020-11-28 15:17] VITALS: BP 138/76
[2020-11-28] MEDS ORDERED: SCOPOLAMINE 1.5MG PATCH. TD ONE (16:15)
[2020-11-28] MEDS ORDERED: ONDANSETRON PF 4 MG/2 ML VIAL. IVP ONE (16:15)
== END 2020-11-28 16:34 | disposition home or self-care (01) ==
LOC: SURG 09:43
PROVIDERS: ATTEND Orthopaedic Surgery
DX: G56.21 Lesion of ulnar nerve, right upper limb (principal); G56.02 Carpal tunnel syndrome, left upper limb; M25.531 Pain in right wrist; E78.00 Pure hypercholesterolemia, unspecified; I10 Essential (primary) hypertension; E11.9 Type 2 diabetes mellitus without complications; G47.30 Sleep apnea, unspecified; E66.9 Obesity, unspecified; Z79.82 Long term (current) use of aspirin; Z79.899 Other long term (current) drug therapy; Z98.890 Other specified postprocedural states; Z72.89 Other problems related to lifestyle
CPT/HCPCS: 20605; 64718; 64719; 64721; 82962; A4930; J0780; J1030; J1100; J2405; J2704; J3010; Q0169; A4657; A6452

== ENCOUNTER → 2021-03-08 | Day surgery (SDC) | payer BC ==
[~2021-03-08] VITALS: Ht 180.3 cm; Wt 140.0 kg
[~2021-03-08] MED LIST changes: +ASPI-630 PO; -BUPIVACAINE-EPI 0.25% 30 ML VIAL KIT. ONE; -DEXAMETHASONE SOD PHOS 4 MG/ML VIAL ONE; -HYDROmorphone 2 MG/ML VIAL IVP PRN; +IV RINGERS,LACTATED 1000ML 1,000 ML IV ONE; +IV RINGERS,LACTATED 1000ML 1,000 ML IV SCH; +LIDO700A21 TP; +LOSA100T14 PO; -MORPHINE SULFATE 2 MG/ML VIAL. IVP PRN; -ONDANSETRON PF 4 MG/2 ML VIAL. ONE; +OXYC1TAB15 PO; +PROM25TA10 PO; -ceFAZolin SODIUM 3 GM in IV DEXTROSE 5% 100ML 100 ML IV PRN; -fentaNYL PF VIAL 100 MCG/2 ML VIAL IVP PRN
[2021-03-08 07:26] VITALS: BP 154/81
[2021-03-08 08:41] VITALS: BP 148/79
--- NOTE | 2021-03-09 12:07 | PATHOLOGY ---
[facility] Accession Number: [id number] . 01 Material submitted: . esophagus - DISTAL ESOPHAGUS BIOPSY. Modifiers: distal . 01 Clinical history: . BLOATING,BELCHING,NAUSEA EGD . 02 Diagnosis: Esophageal biopsies, distal esophagus: - Reflux esophagitis. (JPM:oli; 03/09/2021[place] [facility] [place] 0830 [place] . 02 Comment: Sections of the distal esophageal biopsy reveal segments of tangentially oriented hyperplastic squamous esophageal mucosa. The findings are consistent with reflux esophagitis. There is no evidence of Boone's change, dysplasia, or malignancy. (JPM:oli; 03/09/2021) . 02 Electronically signed: . Clark Gillette MD, Pathologist NPI- [id number] . 01 Gross description: . Received in formalin labeled "Clemente Robert and distal esophagus biopsy". Received are 4 martinez-marquez soft tissue fragments ranging from 0.2-0.4 cm. The specimen is entirely submitted in cassette A1.([facility]; 03/08/2021) /[facility] 03/09/2021 0829 Local . 02 Pathologist provided ICD-10: K21.00 . 02 CPT . 977721 Specimen Comment: A courtesy copy of this report has been sent to [phone], [phone] Specimen Comment: [id number] Specimen Comment: Report sent to / DR HEALY Performed at: 01 [facility] [address], [place] [id number] MD Denny Nash MD Phone: [phone] Performed at: 02 [facility] [address], [place] [id number] MD Clark Gillette MD Phone: [phone]
== END | disposition home or self-care (01) ==
LOC: SURG 07:02
PROVIDERS: ATTEND Internal Medicine Gastroenterology
DX: R10.13 Epigastric pain (principal); R11.0 Nausea; K21.00 Gastro-esophageal reflux disease with esophagitis, without bleeding; K31.89 Other diseases of stomach and duodenum; I10 Essential (primary) hypertension; E78.00 Pure hypercholesterolemia, unspecified; G47.30 Sleep apnea, unspecified; E66.9 Obesity, unspecified; M19.90 Unspecified osteoarthritis, unspecified site; E11.9 Type 2 diabetes mellitus without complications; Z79.82 Long term (current) use of aspirin; Z79.899 Other long term (current) drug therapy; Z98.890 Other specified postprocedural states
CPT/HCPCS: 43239; 88305; J2704

== ENCOUNTER → 2021-03-30 | Outpatient (CLI) | payer BC ==
[2021-03-08 08:41] VITALS: BP 148/79
[~2021-03-30] MED LIST changes: +IOHEXOL 240 MG/ML 50ML VIAL. ONE; +IOHEXOL 240 MG/ML 50ML VIAL. PO ONE; +IOHEXOL 300 MG/ML 100ML VIAL. IV ONE; -IV RINGERS,LACTATED 1000ML 1,000 ML IV ONE; -IV RINGERS,LACTATED 1000ML 1,000 ML IV SCH; -LIDOCAINE 2% PF 5 ML VIAL. ONE; -PROPOFOL 10 MG/ML (20ML) VIAL. IV ONE
--- NOTE | 2021-03-30 12:36 | RAD ---
PQRS Compliance Statement: One or more of the following individualized dose reduction techniques were utilized for this examinat ion: 1. Automated exposure control 2. Adjustment of the mA and/or kV according to patient size 3. Use of iterative reconstruction technique CT abdomen/pelvis with contrast 03/30/2021 8:09 AM INDICATION: Diffuse abdominal pain COMPARISON: CT abdomen/pelvis 07/17/2017, 01/25/2021 TECHNIQUE: Multiple axial CT images of the abdomen and pelvis were obtained after the intravenous adm inistration of 60 mL Omnipaque 300. Coronal and sagittal reformats are provided. FINDINGS: 5 mm solid noncalcified subpleural nodule at the right lung base is stable dating back to 07/17/2017 and presumed benign. Heart size is within normal limits. Liver, spleen, adrenal glands and gallbladde r present without adjacent inflammation. Calcifications within the head of the pancreas could reflect sequela of chronic pancreatitis. Abdominal aorta is normal in course and caliber. No pathologically enlarged lymph nodes are identified in abdomen and pelvis. There is no free fluid or free intraperito timur air. There is mild hazy attenuation within the root of the small bowel mesentery with nonenlarge d shotty lymphadenopathy. Consideration may be given for mesenteric adenitis. Oral contrast was administered. Opacified bowel loops demonstrate normal mucosal fold pattern. Small and large bowel are normal in caliber. There is no evidence for bowel obstruction. There are no peric olonic inflammatory changes. A normal, nondilated appendix is visualized without adjacent inflammator y changes. The kidneys enhance symmetrically. There is subtle ill-defined hypoenhancement along the mid to super ior pole right kidney (series 4, image 40). No definite renal mass. There is no hydronephrosis. There are no suspected calculi within the kidneys, ureters or urinary bladder. Urinary bladder within normal limits given degree of distention. Prostate and seminal vesicles are no rmal. No suspicious osseous normality is identified. IMPRESSION: 1. Hazy attenuation within the root of small bowel mesentery with Chiari lymphadenopathy could reflec t mesenteric adenitis. Findings are similar to prior examination. Additional 3-6 month follow-up CT a bdomen/pelvis is recommended to assess stability. 2. Ill-defined hypoattenuation identified in the mid to superior pole right kidney. Renal mass protoc ol CT could be of benefit for further characterization. A discrete renal mass is not definitively vis ualized. Electronically signed by: Kimi Sy MD (03/30/2021 12:34 PM) [id number]
== END ==
LOC: CT 07:59
PROVIDERS: ATTEND Internal Medicine Gastroenterology
DX: N28.89 Other specified disorders of kidney and ureter (principal); R59.1 Generalized enlarged lymph nodes; K86.89 Other specified diseases of pancreas; R91.1 Solitary pulmonary nodule
CPT/HCPCS: 74177; Q9966; Q9967

== ENCOUNTER 2021-04-14 06:03 | Day surgery (SDC) | payer BC ==
[~2021-04-14] VITALS: Ht 180.3 cm; Wt 139.0 kg
[~2021-04-14 06:03] MED LIST changes: +HYDROmorphone 2 MG/ML VIAL IVP PRN; -IOHEXOL 240 MG/ML 50ML VIAL. ONE; -IOHEXOL 240 MG/ML 50ML VIAL. PO ONE; -IOHEXOL 300 MG/ML 100ML VIAL. IV ONE; +IV RINGERS,LACTATED 1000ML 1,000 ML IV SCH; +MORPHINE SULFATE 2 MG/ML INJ. IVP PRN; +PROCHLORPERAZINE 10 MG/2 ML VIAL. IVP PRN; +fentaNYL PF VIAL 100 MCG/2 ML VIAL IVP PRN
[2021-04-14] MEDS ORDERED: ceFAZolin SODIUM IV Push 1 GM VIAL. IVP PRN (06:30)
[2021-04-14] MEDS ORDERED: ceFAZolin SODIUM 3 GM in IV DEXTROSE 5% 100ML 100 ML IV PRN (06:45)
[2021-04-14] MEDS ORDERED: INSULIN LISPRO 100 UNIT/ML 3ML VIAL for OP,RR ONLY. SQ PRN (06:45)
[2021-04-14] MEDS ORDERED: ONDANSETRON PF 4 MG/2 ML VIAL. ONE ×2 (06:52→08:44)
[2021-04-14] MEDS ORDERED: DEXAMETHASONE SOD PHOS 4 MG/ML VIAL ONE (06:52)
[2021-04-14] MEDS ORDERED: LIDOCAINE 2% PF 5 ML VIAL. ONE (06:52)
[2021-04-14] MEDS ORDERED: PROPOFOL 10 MG/ML (20ML) VIAL. IV ONE (06:52)
[2021-04-14] MEDS ORDERED: fentaNYL PF VIAL 100 MCG/2 ML VIAL ONE (06:52)
[2021-04-14] MEDS ORDERED: ROCURONIUM 50 MG/5 ML VIAL. ONE (06:57)
[2021-04-14] MEDS ORDERED: INSULIN LISPRO 100 UNIT/ML 3ML VIAL for OP,RR ONLY. SQ ONE (07:00)
[2021-04-14] MEDS ORDERED: HYDR-2761 PO (07:14)
--- NOTE | 2021-04-14 07:17 | DISCH ---
DISCHARGE INSTRUCTIONS Condition on Discharge Condition on Discharge: Stable Activity After Discharge Activity Instructions for Disc: Other, see below (Fine motor use encouraged such as eating writing typing as well as gentle elbow range of motion no hard grasping or heavy lifting) Lifting Instructions after Dis: No heavy lifting, No pulling or pushing Exercise Instruction after Dis: Progress as tolerated Driving Instructions after Dis: Do not drive today Weight Bearing Status after Di: Non weight bearing Diet after Discharge Diet after Discharge: Renal Non-Dialysis, Regular Diet Texture: Regular Wound Incision Care Wound/Incision Care: Do not change dressing (Keep dressing on wrist unless soiled may remove elbow dressing after 4 days may shower but keep incisions dry and no soaking) Checks after Discharge Checks after discharge: Check blood press - daily Contacting the DREsau after DC Call your doctor for: Concerns you may have Follow-Up Follow up with: Dr. Maxwell or Alanis 10 days WALDO MAXWELL MD Apr 14, 2021 07:17
[2021-04-14] MEDS ORDERED: BUPIVACAINE MPF 0.5% 30 ML VIAL. ONE (07:20)
[2021-04-14] MEDS ORDERED: SCOPOLAMINE 1.5MG PATCH. TD ONE ×2 (07:23→07:30)
[2021-04-14 08:45] VITALS: BP 119/70
[2021-04-14] MEDS ORDERED: ONDANSETRON PF 4 MG/2 ML VIAL. IVP ONE (09:00)
--- NOTE | 2021-04-14 12:47 | PDOC4 ---
Operative Note Operative Note Date of surgery: 04/14/2021 Preoperative diagnosis: Left carpal and cubital tunnel syndrome Postoperative diagnosis: Same with moderate median nerve compression and severe ulnar nerve compression Operative procedure: Left carpal tunnel release, left cubital tunnel release Surgeon: Hans Anesthesia: General Assist: Yadiel corrales Estimated blood loss: 2 cc Complications: None Operative indications: Patient has worsening paresthesia in the median nerve distribution on the both hands and EMG verification of bilateral carpal tunnel and cubital tunnel syndrome with the numbness symptoms on the left hand being worse. I had gone over with him the risks benefits postoperative course of carpal tunnel release including the possibility of infection nerve or blood vessel damage incisional area pain and the possibility of incomplete relief. All his questions were answered he wishes to proceed with surgical evaluation and treatment Operative text: Patient was identified procedure verified patient placed in the supine position on the operating table. After adequate amounts of local anesthesia were administered the left upper extremity was prepped and draped in standard sterile fashion with an upper arm tourniquet. After timeout was performed patient procedure identified and verified the left upper extremity exsanguinated by Esmarch bandage and tourniquet inflated to 250 mmHg. A longitudinal incision was made just distal to the distal palmar crease dissection carried out to identify the transverse carpal ligament which was divided longitudinally under direct vision and verified visually and palpably to be released completely to its proximal and distal extent. Recurrent branch was identified and preserved and the tendons were noted to be free from synovitis. Median nerve was noted to have moderate compression. Attention was then turned to the medial elbow where a curvilinear incision was made dissection down to the cubital tunnel which was gently opened sharply and exposed with tenotomy scissors from the intermuscular septum area proximally through the cubital tunn el into the flexor musculature where it was completely released throughout and found to have very severe compression. Thorough irrigation carried with normal saline solution skin closure accomplished with nylon suture in a vertical mattress fashion sterile soft dressings were applied fingers were noted be warm pink following deflation of the tourniquet patient returned to recovery room in stable condition having tolerated procedure well. Yadiel corrales present for the procedure and assisted with patient positioning prepping draping retraction closure and dressings WALDO MURDOCK MD Apr 14, 2021 12:47
== END 2021-04-14 09:31 | disposition home or self-care (01) ==
LOC: SURG 06:03
PROVIDERS: ATTEND Orthopaedic Surgery
DX: G56.22 Lesion of ulnar nerve, left upper limb (principal); G56.02 Carpal tunnel syndrome, left upper limb; I10 Essential (primary) hypertension; E78.00 Pure hypercholesterolemia, unspecified; K21.9 Gastro-esophageal reflux disease without esophagitis; E66.9 Obesity, unspecified; M19.90 Unspecified osteoarthritis, unspecified site; E11.9 Type 2 diabetes mellitus without complications; G47.30 Sleep apnea, unspecified; Z79.82 Long term (current) use of aspirin; Z79.84 Long term (current) use of oral hypoglycemic drugs; Z79.899 Other long term (current) drug therapy; Z98.890 Other specified postprocedural states
CPT/HCPCS: 64718; 64721; 82962; A4364; A4930; A6402; J1100; J1815; J2405; J2704; J3010; J3490; A4452; A4657; A6452

== ENCOUNTER → 2021-05-05 | Outpatient (CLI) | payer BC ==
[2021-04-14 08:45] VITALS: BP 119/70
[~2021-05-05] MED LIST changes: +CONTRAST GIVEN. MC PRN; -HYDROmorphone 2 MG/ML VIAL IVP PRN; +IOHEXOL 300 MG/ML 100ML VIAL. IV ONE; -IV RINGERS,LACTATED 1000ML 1,000 ML IV SCH; -MORPHINE SULFATE 2 MG/ML INJ. IVP PRN; -PROCHLORPERAZINE 10 MG/2 ML VIAL. IVP PRN; -fentaNYL PF VIAL 100 MCG/2 ML VIAL IVP PRN
[2021-05-05 08:56] LABS: CREATININE 1.4 mg/dL (0.7-1.3); GFR 61.2
--- NOTE | 2021-05-05 11:19 | RAD ---
EXAM: CT abdomen with and without contrast. HISTORY: Right renal mass. TECHNIQUE: CT of the abdomen was performed before and after the intravenous administration of iodinat ed contrast. One or more of the following individualized dose reduction techniques were utilized for this examination: 1. Automated exposure control. 2. Adjustment of the mA and/or kV according to patient size. 3. Use of iterative reconstruction technique. COMPARISON: 03/30/2021. FINDINGS: Images of the lung bases reveal mild atelectasis and a calcified right lower lobe granuloma . Bone windows reveal no suspicious lesions. There are no renal or proximal ureteral calculi. The region of hypoperfusion in the right renal inter polar region persists. It is ill-defined and not masslike, measuring approximately 1.8 x 1.4 cm. A fe w tiny cysts are noted on the right. There are no clearly suspicious renal lesions. Calcifications in the pancreatic head are consistent with chronic pancreatitis. There is no pancreati c ductal dilatation or clear parenchymal lesion. The liver, gallbladder, and adrenal glands are unremarkable. There are no pathologically enlarged lym ph nodes. The appendix is not inflamed. Left colonic diverticulosis is mild. There is no small bowel obstruction. IMPRESSION: 1. A 1.8 cm region of hypoperfusion in the right renal interpolar region is not clearly changed. This most likely reflects a chronic infarct or scarring rather than a mass. Follow-up could be performed in 6 months if there is persistent concern. 2. Findings consistent with chronic pancreatitis. Electronically signed by: Lexy Nielsen MD (05/05/2021 11:16 AM) [id number]
== END ==
LOC: CT 08:39
PROVIDERS: ATTEND Family Medicine
DX: J98.11 Atelectasis (principal); J84.10 Pulmonary fibrosis, unspecified; N28.89 Other specified disorders of kidney and ureter; R93.429 Abnormal radiologic findings on diagnostic imaging of unspecified kidney
CPT/HCPCS: 36415; 74170; 82565; Q9967

== ENCOUNTER → 2021-06-16 | Outpatient (CLI) | payer BC ==
[~2021-06-16] MED LIST changes: -CONTRAST GIVEN. MC PRN; -IOHEXOL 300 MG/ML 100ML VIAL. IV ONE
--- NOTE | 2021-06-16 09:18 | RAD ---
EXAM: ULTRASOUND ABDOMEN COMPLETE CLINICAL HISTORY: Reason: ABDOMINAL PAIN, NAUSEA / Spl. Instructions: / History: COMPARISON: 01/26/2021. TECHNIQUE: Ultrasound of the upper abdomen was performed. FINDINGS: The pancreas, aorta, IVC are not well-visualized due to bowel gas. There is mild increased echogenici ty identified throughout the liver likely hepatic steatosis. The liver length measures 17.1 cm. No ev idence of gallstones. The common bile duct measures 4.7 mm in transverse dimension. The right kidney measures 13.0 x 4.5 x 5.4 cm. The left kidney measures 10.9 x 4.3 x 5.3 cm. IMPRESSION: Hepatic steatosis. Electronically signed by: Tobias Dietz MD (06/16/2021 9:15 AM) [id number]
--- NOTE | 2021-06-16 11:31 | RAD ---
Examination: Hepatobiliary Scan: History: Abdominal pain. Technique: 5 mCi technetium 99m Choletec was administered intravenously and spot views were obtained on the gamma camera for a Nuclear Medicine hepatobiliary scan. 8 ounces of Ensure was given orally and the region of interest was drawn around the gallbladder and g allbladder ejection fraction was calculated. Findings: There is rapid uptake of activity from the blood pool and concentration in the liver. Activity seen i n the gallbladder and small bowel. There is a rapid response of the gallbladder to CCK and the gallbladder ejection fraction is 66% whic h is normal. Impression: Normal hepatobiliary scan. Normal gallbladder function. Electronically signed by: Tobias Dietz MD (06/16/2021 11:29 AM) [id number]
== END ==
LOC: US 07:45
PROVIDERS: ATTEND Internal Medicine Gastroenterology
DX: K76.0 Fatty (change of) liver, not elsewhere classified (principal); R11.0 Nausea
CPT/HCPCS: 76700; 78227; A9537

== ENCOUNTER → 2021-09-19 | Outpatient (CLI) | payer BC ==
[~2021-09-19] MED LIST changes: +LIPA1CAP4 PO
--- NOTE | 2021-09-19 14:10 | PDOC ---
Progress Note - Pain Clinic Date of Service: DOS: DATE: 09/19/21 TIME: 14:05 Diagnosis: Dx: Chronic postoperative pain status post bilateral carpal tunnel release and cubital tunnel release Lumbar radiculopathy with lumbar spinal stenosis lumbar degenerative disease and lumbar spondylosis History or Present Illness: HPI: 65-year-old male returns last seen May 2020 status post right and left carpal tunnel release as well as cubital tunnel release right side in November 2020 and the left side in March 2021 patient reports has had chronic pain since the surgeries on both arms and is still present with radiating pain in the medial aspect of the elbow forearm to the hand the finger especially in the fifth finger patient is undergone occupational therapy with the hands and arms and is still going undergoing physical therapy with the upper extremities patient reports the pain is aching sharp dull tight shooting cramping stabbing burning tingling radiating constant and severe worse with repetitive motions worse with using the upper extremities rates it as a 10 on scale 10 is worst 8 on average 6 its least is a 10 today patient reports much worse with repetitive motions lifting items reaching disturbs him from sleep about every 6 hours patient reports no loss of motor function with significant fatigability of the upper extremities with the pain present. Again patient continues to undergo physical therapy and occupational therapy and is gotten better with mobility but the pain is not decreased. Patient has been tried on oral narcotics with significant nausea and vomiting no other medications prescription have been tried but patient does take Advil at night which he reports helps him get through the night for the most part. Physical Exam: VS: Blood pressure is 131/80 pulse 96 respirations 18 temperature 97.7 F height is 5 feet 10 inches weight is 295 PE: PHYSICAL EXAMINATION: GENERAL: The patient is awake, alert, oriented, appropriate, very pleasant in demeanor HEENT: Shows normocephalic, atraumatic. Extraocular movements are intact and symmetrical. Oral cavity: Mucous membranes moist and pink. Dentition is intact. NECK: Shows anterior throat supple without palpable lymphadenopathy noted. Swallow reflex symmetrical. CHEST: Shows normal on inspection. Breath sounds are clear bilaterally, distant but no rales or rhonchi auscultated. HEART: Shows S1, S2 clear. No murmurs auscultated. ABDOMEN: Soft, nontender, nondistended. No palpable organomegaly is noted. BACK: Shows spine grossly in the midline. Normal-appearing cervical lordotic curvature. There is increased thoracic kyphosis, some flattening of the lumbar lordotic curvature. Lumbar paraspinous muscles show symmetrical on inspection, on palpation shows some moderate tenderness diffusely throughout the upper, middle and lower distribution of the paraspinous muscles bilaterally without specific trigger points, without radiation of pain. The patient has good rotational motion of the lumbar spine, both laterally as well as extension and flexion without significant difficulty. No tenderness over the spinous processes, sacrum or sacroiliac regions. EXTREMITIES: Upper extremities show deep tendon reflexes 2+ in the biceps tendons motor exam is approximately 3 to form scale 5 with assistant foreman strength and 4-5 with bicep tricep flexion patient grimaces with resistance to bicep and tricep flexion with holding the forearms bilaterally. Patient has well-healed surgical scars bilaterally at the medial elbow as well as the anterior aspect of the wrist from carpal tunnel and cubital tunnel release. Patient shows some hypersensitivity with light touch in the medial aspect of the forearms to the hand and fifth finger bilaterally somewhat more sensitive on the right than the left. Deeper palpation is very painful to the patient throughout the same distribution as well as putting a blood pressure cuff on the humerus on the right arm was extremely painful to the lower arm as well. SKIN: Shows warm and dry, good turgor. No edema. No sores, rashes or bruising throughout. Procedure: Procedure: Options were discussed with the patient. Patient's old chart was reviewed as his current medication regimen updated current review of systems updated today as well. We will prescribe Neurontin 300 mg 3 times daily patient was given instructions well side effects aware with the medication. Patient follow-up in approximate 4 weeks or sooner as necessary. Patient does have a neurology appointment coming up in approximately 2 months. Medication Injected: Med Injected: None Condition at Discharge: Condition at Discharge: Condition at discharge is stable. SANJUANA WATT MD Sep 19, 2021 14:10
== END | disposition home or self-care (01) ==
LOC: PNCL 13:21
PROVIDERS: ATTEND Anesthesiology
DX: G89.29 Other chronic pain (principal); M47.26 Other spondylosis with radiculopathy, lumbar region; M48.061 Spinal stenosis, lumbar region without neurogenic claudication; G56.03 Carpal tunnel syndrome, bilateral upper limbs; I10 Essential (primary) hypertension; E78.00 Pure hypercholesterolemia, unspecified; E11.9 Type 2 diabetes mellitus without complications; E66.9 Obesity, unspecified; G47.30 Sleep apnea, unspecified; K21.9 Gastro-esophageal reflux disease without esophagitis; M19.90 Unspecified osteoarthritis, unspecified site; Z79.82 Long term (current) use of aspirin; Z79.899 Other long term (current) drug therapy; Z98.890 Other specified postprocedural states
CPT/HCPCS: G0463

== ENCOUNTER → 2021-10-23 | Outpatient (CLI) | payer BC ==
--- NOTE | 2021-10-23 15:57 | PDOC ---
Progress Note - Pain Clinic Date of Service: DOS: DATE: 10/23/21 TIME: 15:51 Diagnosis: Dx: Chronic postoperative pain status post bilateral carpal tunnel repair and bilateral cubital tunnel repair Lumbar radiculopathy with lumbar spinal stenosis lumbar degenerative disc disease with lumbar spondylosis History or Present Illness: HPI: 66-year-old male returns for follow-up status post medication management with gabapentin prescribed on his last visit which was September 19 3 times daily 300 mg. Patient reports he been only taking it twice daily as he is generally not home to take the third dose and has not been decreasing the pain significantly in the upper extremities patient reports still significant pain described as tingling burning stabbing aching sharp dull tight shooting in the forearms from the elbows distally mostly in the ulnar distribution more on the left than the right but present bilaterally and more painful in the right hand than the left patient reports radiating constant severe with all activities he has difficulty with fine motor movements opening jars and lids and daily activities etc. Patient reports very difficult to sleep at night mostly due to his right arm pain. Patient reports no new motor or sensory deficits. Patient reports he is awaiting EMG testing which is scheduled for mid November. Physical Exam: VS: Blood pressure is 142/91 pulse 86 respirations 18 temperature 90.1 F weight is 297 pounds. PE: PHYSICAL EXAMINATION: GENERAL: The patient is awake, alert, oriented, appropriate, very pleasant in demeanor HEENT: Shows normocephalic, atraumatic. Extraocular movements are intact and symmetrical. Oral cavity: Mucous membranes moist and pink. Dentition is intact. NECK: Shows anterior throat supple without palpable lymphadenopathy noted. Swallow reflex symmetrical. CHEST: Shows normal on inspection. Breath sounds are clear bilaterally, distant no rales or rhonchi. HEART: Shows S1, S2 clear. No murmurs auscultated. ABDOMEN: Soft, nontender, nondistended. No palpable organomegaly is noted. BACK: Shows spine grossly in the midline. Normal-appearing cervical lordotic cu rvature. There is slightly increased thoracic kyphosis, some minor flattening of the lumbar lordotic curvature. Lumbar paraspinous muscles show symmetrical on inspection, on palpation shows some moderate tenderness diffusely throughout the upper, middle and lower distribution of the paraspinous muscles, but without specific trigger points, without radiation of pain. The patient has good rotational motion of the lumbar spine, both laterally as well as extension and flexion without significant difficulty. EXTREMITIES: Lower extremities show deep tendon reflexes 1+ in the patellar and tendo calcaneus tendons. Motor exam is 4 on a scale of 5 with right dorsiflexion, extension, quadriceps and hamstring flexion and 4/5 on the left. Peripheral pulses are 1+ posterior tibial. No peripheral edema is noted bilaterally. Lower extremities are warm and dry to touch, equal in color and appearance. Upper extremity show deep tendon reflexes 2+ in the bicep tricep tendons motor exam is roughly 3 on a scale of 5 with registration representative strength on the right and 4 out of 5 on the left. Peripheral pulses are 2+ radial well-healed surgical scars noted both the medial elbow as well as the anterior wrist bilaterally. Patient has significant hypersensitivity in the medial aspect of the forearms bilaterally no difference in hair growth pattern or discoloration is noted. SKIN: Shows warm and dry, good turgor. No edema. No sores, rashes or bruising throughout. Procedure: Procedure: Options were discussed with the patient. Patient's old chart was viewed as his current medication regimen updated her review of systems updated today as well. We will increase patient's Neurontin to 3 mg twice daily and 600 mg at night. Patient was given instruction as well as side effects to be aware of with the medication. Also will contact patient's neurology office to see if his EMG may be moved up on scheduling. Patient return to clinic in approximately 4 weeks as scheduled. Medication Injected: Med Injected: None Condition at Discharge: Condition at Discharge: Condition at discharge is stable. SANJUANA WATT MD Oct 23, 2021 15:57
== END | disposition home or self-care (01) ==
LOC: PNCL 15:22
PROVIDERS: ATTEND Anesthesiology
DX: M51.16 Intervertebral disc disorders with radiculopathy, lumbar region (principal); M47.26 Other spondylosis with radiculopathy, lumbar region; G89.29 Other chronic pain; G56.03 Carpal tunnel syndrome, bilateral upper limbs; M48.061 Spinal stenosis, lumbar region without neurogenic claudication; I10 Essential (primary) hypertension; E78.00 Pure hypercholesterolemia, unspecified; K21.9 Gastro-esophageal reflux disease without esophagitis; E66.9 Obesity, unspecified; E11.9 Type 2 diabetes mellitus without complications; G47.30 Sleep apnea, unspecified; Z79.899 Other long term (current) drug therapy; Z98.890 Other specified postprocedural states; Z79.82 Long term (current) use of aspirin
CPT/HCPCS: 99212; G0463